=== PATIENT | male | born 1990 | race American Indian/Alaskan Native ===

== ENCOUNTER 2018-12-10 07:17 | Emergency (ER) | payer SELFPAY ==
[2018-12-10 09:03] LABS: Basophils % (Auto) 0.6 % (0.0-1.8); Eosinophils # (Auto) 0.2 K/mm3 (0.0-0.4); Hematocrit 46.3 % (35.5-45.6); Hemoglobin 15.7 gm/dl (11.8-15.2); Lymphocytes # (Auto) 1.9 K/mm3 (1.2-5.4); Lymphocytes % (Auto) 26.2 % (13.4-35.0); Mean Corpuscular HGB Conc 34 % (32-34); Mean Corpuscular Volume 90 fl (84-94); Monocytes # (Auto) 0.6 K/mm3 (0.0-0.8); Monocytes % (Auto) 8.4 % (0.0-7.3); Platelet Count 259 K/mm3 (140-440); Red Blood Count 5.15 M/mm3 (3.65-5.03); Red Cell Distribution Width 13.1 % (13.2-15.2)
[2018-12-10 09:20] LABS: BUN/Creatinine Ratio 16; Blood Urea Nitrogen 13 mg/dL (9-20); Calcium 9.2 mg/dL (8.4-10.2); Hemolysis Index 9
[2018-12-10 09:21] LABS: INR 0.97 (0.87-1.13)
[2018-12-10 09:22] LABS: Partial Thromboplastin Time 26.3 Sec. (24.2-36.6)
--- NOTE | 2018-12-10 09:27 | XRay Report ---
AP CHEST: HISTORY: chest pain AP view of the chest demonstrates a normal mediastinal and cardiac contour with clear lungs and normal bony and soft tissue structures. IMPRESSION: Unremarkable AP chest.
[2018-12-10 10:35] LABS: Amphetamine Screen,Urine PRESUMPTIVE NEGATIVE; Benzodiazepines Screen,Urine PRESUMPTIVE NEGATIVE; Cocaine Screen,Urine PRESUMPTIVE NEGATIVE; Methadone Screen,Urine PRESUMPTIVE NEGATIVE; Opiate Screen,Urine PRESUMPTIVE NEGATIVE
[2018-12-10 10:52] LABS: Cannabinoid Screen,Urine PRESUMPTIVE POSITIVE
--- NOTE | 2018-12-10 11:03 | Emergency Department Report ---
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 He arrives today complaining of intermittent chest pain of weeks' duration. This is his first evaluation. He states he has anterior sharp pain which does not radiate. It is nonpleuritic. He has other aches and pains such as myalgias in his e xtremities. He is not complaining of shortness of breath now but states he has this occasionally. Does not complain of cough. He's had no leg pain or swelling. He denies any recent travel. He denies sweating or nausea or vomiting or any other symptoms. His pain is nonexertional in nature. He states the chest pain lasts for seconds and is associated with palpable soreness. -: week(s) Location: chest Radiation: non-radiation Severity scale (0 -10): 0 Quality: sharp Consistency: intermittent, now resolved Improves with: none Worsens with: none Associated Symptoms: denies other symptoms Treatments Prior to Arrival: none - Related Data Allergies Allergy/AdvReac Type Severity Reaction Status Date / Time No Known Allergies Allergy Verified 12/10/18 07:23 ED Review of Systems ROS: Stated complaint: CHEST PAIN Other details as noted in HPI Constitutional: denies: chills, fever Eyes: denies: eye pain, eye discharge, vision change ENT: denies: ear pain, throat pain Respiratory: see HPI. denies: cough, wheezing Cardiovascular: chest pain. denies: palpitations Endocrine: no symptoms reported Gastrointestinal: denies: abdominal pain, nausea, diarrhea Genitourinary: denies: urgency, dysuria Musculoskeletal: denies: back pain, joint swelling, arthralgia Skin: denies: rash, lesions Neurological: denies: headache, weakness, paresthesias Psychiatric: denies: anxiety, depression Hematological/Lymphatic: denies: easy bleeding, easy bruising ED Past Medical Hx - Past Medical History Previous Medical History?: No - Surgical History Past Surgical History?: No - Social History Smoking Status: Never Smoker Substance Use Type: Alcohol ED Physical Exam - General Limitations: No Limitations General appearance: alert, in no apparent distress - Head Head exam: Present: atraumatic, normocephalic - Eye Eye exam: Present: normal appearance - ENT ENT exam: Present: mucous membranes moist - Neck Neck exam: Present: normal inspection. Absent: tenderness, meningismus - Respiratory Respiratory exam: Present: normal lung sounds bilaterally. Absent: respiratory distress - Cardiovascular Cardiovascular Exam: Present: regular rate, normal rhythm. Absent: systolic murmur, diastolic murmur, rubs, gallop - GI/Abdominal GI/Abdominal exam: Present: soft, normal bowel sounds. Absent: distended, t enderness, guarding, rebound, rigid - Rectal Rectal exam: Present: deferred - Extremities Exam Extremities exam: Present: normal inspection - Back Exam Back exam: Present: normal inspection - Neurological Exam Neurological exam: Present: alert, oriented X3, CN II-XII intact. Absent: motor sensory deficit - Psychiatric Psychiatric exam: Present: normal affect, normal mood - Skin Skin exam: Present: warm, dry, intact, normal color. Absent: rash ED Course Vital Signs 12/10/18 12/10/18 07:23 10:23 Temperature 98.6 F Pulse Rate 75 84 Respiratory 18 18 Rate Blood Pressure 137/78 Blood Pressure 136/79 [Left] O2 Sat by Pulse 98 96 Oximetry - Reevaluation(s) Reevaluation #1: Patient remained without complaints in the emergency department. 12/10/18 11:02 ED Medical Decision Making - Lab Data Result diagrams: 12/10/18 08:43 12/10/18 08:43 Laboratory Results - last 24 hr 12/10/18 12/10/18 12/10/18 08:43 08:43 08:43 WBC 7.2 RBC 5.15 H Hgb 15.7 H Hct 46.3 H MCV 90 MCH 31 MCHC 34 RDW 13.1 L Plt Count 259 Lymph % (Auto) 26.2 [place] % (Auto) 8.4 H Eos % (Auto) 3.0 Baso % (Auto) 0.6 Lymph # 1.9 [place] # 0.6 Eos # 0.2 Baso # 0.0 Seg Neutrophils % 61.8 Seg Neutrophils # 4.4 PT 13.5 INR 0.97 APTT 26.3 D-Dimer 151.12 Sodium 138 Potassium 4.2 Chloride 100.4 Carbon Dioxide 25 Anion Gap 17 BUN 13 Creatinine 0.8 Estimated GFR > 60 BUN/Creatinine Ratio 16 Glucose 77 Calcium 9.2 Troponin T < 0.010 Urine Opiates Screen Urine Methadone Screen Ur Barbiturates Screen Ur Phencyclidine Scrn Ur Amphetamines Screen U Benzodiazepines Scrn Urine Cocaine Screen U Marijuana (THC) Screen Drugs of Abuse Note 12/10/18 10:05 WBC RBC Hgb Hct MCV MCH MCHC RDW Plt Count Lymph % (Auto) [place] % (Auto) Eos % (Auto) Baso % (Auto) Lymph # [place] # Eos # Baso # Seg Neutrophils % Seg Neutrophils # PT INR APTT D-Dimer Sodium Potassium Chloride Carbon Dioxide Anion Gap BUN Creatinine Estimated GFR BUN/Creatinine Ratio Glucose Calcium Troponin T Urine Opiates Screen Presumptive negative Urine Methadone Screen Presumptive negative Ur Barbiturates Screen Presumptive negative Ur Phencyclidine Scrn Presumptive negative Ur Amphetamines Screen Presumptive negative U Benzodiazepines Scrn Presumptive negative Urine Cocaine Screen Presumptive negative U Marijuana (THC) Screen Presumptive positive Drugs of Abuse Note Disclamer - EKG Data -: EKG Interpreted by Ak EKG shows normal: sinus rhythm, axis, intervals, QRS complexes, ST-T waves Rate: normal - EKG Data Interpretation: no acute changes - Radiology Data Radiology results: report reviewed (chest x-ray no acute findings) Critical care attestation.: If time is entered above; I have spent that time in minutes in the direct care of this critically ill patient, excluding procedure time. ED Disposition Clinical Impression: Atypical chest pain Disposition: DC-01 TO HOME OR SELFCARE Is pt being admited?: No Does the pt Need Aspirin: No Condition: Stable Instructions: Chest Pain (ED) Additional Instructions: Return any acute change or problem. You can try [id number] medication. Further care and evaluation is recommended at this outside medical clinic. Referrals: DOREEN VALLEJO MD [Primary Care Provider] - 3-5 Days Time of Disposition: 11:04
[2018-12-10 11:17] VITALS: BP 124/84
== END 2018-12-10 11:15 | disposition home or self-care (01) ==
LOC: ED 07:17
DX: R07.89 Other chest pain (principal); M79.18 Myalgia, other site; Z79.899 Other long term (current) drug therapy
CPT/HCPCS: 36415; 71045; 80048; 80307; 84484; 85025; 85379; 85610; 85730; 93005; 93010

== ENCOUNTER 2019-05-13 16:25 | Emergency (ER) | payer OTHER ==
[2019-05-13 16:50] VITALS: BP 127/75
--- NOTE | 2019-05-13 18:08 | XRay Report ---
CHEST 2 VIEWS INDICATION / CLINICAL INFORMATION: Chest pain. COMPARISON: None available. FINDINGS: SUPPORT DEVICES: None. HEART / MEDIASTINUM: The heart size and pulmonary vasculature are normal. The aorta is normal in [place]. LUNGS / PLEURA: No significant pulmonary or pleural abnormality. No pneumothorax. ADDITIONAL FINDINGS: No significant additional findings. IMPRESSION: No acute findings. Signer Name: Cayden Walters MD Signed: 05/13/2019 6:04 PM Workstation Name: [id number]
[2019-05-13] MEDS ORDERED: TORADOL PO ONE (18:36)
--- NOTE | 2019-05-13 18:38 | Emergency Department Report ---
ED Chest Pain HPI - General Chief Complaint: Extremity Injury, Lower Stated Complaint: CHEST/LEG PAIN Time Seen by Provider: 05/13/19 17:28 Source: patient Mode of arrival: Ambulatory Limitations: No Limitations - History of Present Illness Initial Comments: Patient is a 28-year-old male who presents emergency room for complaints of substernal chest pain that began a week ago. Patient was evaluated in the emergency department in November 2018 for the same symptoms and had a normal workup at that time. He states his pain is worse with movement. 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 He denies any nausea, vomiting, shortness of breath, LE edema, radiation of the pain. He denies any personal cardiac history or family cardiac history. Denies any recent car or plane ride, recent surgery or recent immobilization. He is a nonsmoker, nondrinker, denies drug use. He denies any medical problems or any allergies to medications. Severity scale (0 -10): 8 - Related Data Allergies Allergy/AdvReac Type Severity Reaction Status Date / Time No Known Allergies Allergy Verified 05/13/19 16:28 Heart Score - HEART Score History: Slightly suspicious EKG: Normal Age: < 45 Risk factors: No known risk factors Troponin: < normal limit (not tested) HEART Score: 0 ED Review of Systems ROS: Stated complaint: CHEST/LEG PAIN Other details as noted in HPI Comment: All other systems reviewed and negative ED Past Medical Hx - Past Medical History Previous Medical History?: No - Surgical History Past Surgical History?: No - Social History Smoking Status: Never Smoker Substance Use Type: None ED Physical Exam - General Limitations: No Limitations General appearance: alert, in no apparent distress - Head Head exam: Present: atraumatic, normocephalic - Eye Eye exam: Present: normal appearance, PERRL - ENT ENT exam: Present: mucous membranes moist - Respiratory Respiratory exam: Present: normal lung sounds bilaterally, chest wall tenderness (reproducible anterior chest wall discomfort to palpation and with hugging his bilateral arms inward). Absent: respiratory distress, wheezes, rales, rhonchi, stridor, accessory muscle use, decreased breath sounds, prolonged expiratory - Cardiovascular Cardiovascular Exam: Present: regular rate, normal rhythm, normal heart sounds. Absent: systolic murmur, diastolic murmur, rubs, gallop - Extremities Exam Extremities exam: Absent: pedal edema - Neurological Exam Neurological exam: Present: alert, oriented X3 - Psychiatric Psychiatric exam: Present: normal affect, normal mood - Skin Skin exam: Present: warm, dry, intact ED Course Vital Signs 05/13/19 16:47 Temperature 98.2 F Pulse Rate 68 Respiratory 16 Rate Blood Pressure 127/75 [Left] O2 Sat by Pulse 99 Oximetry ISAI score - Isai Score Age > 65: (0) No Aspirin use within the Past 7 Days: (0) No 3 or more CAD Risk Factors: (0) No 2 or more Angina events in past 24 hrs: (0) No Known CAD with more than 50% Stenosis: (0) No Elevated Cardiac Markers: (0) No (not tested) ST Deviation Greater than 0.5mm: (0) No ISAI Score: 0 ED Medical Decision Making - EKG Data EKG shows normal: sinus rhythm, axis, QRS complexes Rate: bradycardia (HR at 56) - EKG Data 05/13/19 18:38 prolonged MI interval at 230 normal early repolarization pattern - Radiology Data Radiology results: report reviewed cc: CHRIS VASQUEZ Fluoro Time In Minutes: CHEST 2 VIEWS INDICATION / CLINICAL INFORMATION: Chest pain. COMPARISON: None available. FINDINGS: SUPPORT DEVICES: None. HEART / MEDIASTINUM: The heart size and pulmonary vasculature are normal. The aorta is normal in caliber. LUNGS / PLEURA: No significant pulmonary or pleural abnormality. No pneumothorax. ADDITIONAL FINDINGS: No significant additional findings. IMPRESSION: No acute findings. Signer Name: Cayden Walters MD Signed: 05/13/2019 6:04 PM Workstation Name: [id number] Transcribed By: RT Dictated By: Cayden Walters MD Electronically Authenticated By: Cayden Walters MD Signed Date/Time: 05/13/19 1804 - Medical Decision Making Patient is a 28-year-old male who presents emergency room for complaints of substernal chest pain that began a week ago. Patient was evaluated in the emergency department in November 2018 for the same symptoms and had a normal workup at that time. He states his pain is worse with movement. 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 He denies any nausea, vomiting, shortness of breath, LE edema, radiation of the pain. He denies any personal cardiac history or family cardiac history. Denies any recent car or plane ride, recent surgery or recent immobilization. He is a nonsmoker, nondrinker, denies drug use. He denies any medical problems or any allergies to medications. vitals are normal. on exam: reproducible anterior chest wall discomfort to palpation and with hugging his bilateral arms inward. CXR with no acute process. EKG shows prolonged MI interval at 230 and normal early repol pattern. pt given toradol for his discomfort while in the ED and his pain completely resolved. he has no CP at all currently. on his visit in 12/14 he had a normal D-dimer and normal troponin. he is PERC criteria negative. he does not meet criteria for ISAI or heart score. due to it being pts second visit in the emergency department for chest discomfort pt was referred to cardiology on an outpatient basis for further evaluation of his chest discomfort. discussed all results with pt. advised pt to please follow up with a manager banquet in the next 2-3 days. please follow up with a primary care doctor in the next 2-3 days. return to the emergency room for any new or worsening symptoms. - Differential Diagnosis costochrondritis, GERD, ACS, PE, PTX, arrhythmia, valvular dysfunction Critical care attestation.: If time is entered above; I have spent that time in minutes in the direct care of this critically ill patient, excluding procedure time. ED Disposition Clinical Impression: First degree heart block Chest pain Qualifiers: Chest pain type: unspecified Qualified Code(s): R07.9 - Chest pain, unspecified Disposition: -01 TO HOME OR SELFCARE Is pt being admited?: No Does the pt Need Aspirin: No Condition: Stable Instructions: Chest Pain (ED) Additional Instructions: please follow up with a manager banquet in the next 2-3 days. please follow up with a primary care doctor in the next 2-3 days. return to the emergency room for any new or worsening symptoms. Referrals: DOREEN VALLEJO MD [Primary Care Provider] - 2-3 Days CHEN RENTERIA MD [Staff Physician] - 2-3 Days Time of Disposition: 18:40 Print Language: PARAGUAYAN
== END 2019-05-13 19:19 | disposition home or self-care (01) ==
LOC: ED 16:25
DX: I44.0 Atrioventricular block, first degree (principal)
CPT/HCPCS: 71046; 93005; 93010

== ENCOUNTER 2019-05-16 08:02 | Emergency (ER) | payer SELFPAY ==
[2019-05-16 08:14] VITALS: BP 129/75
--- NOTE | 2019-05-16 09:16 | XRay Report ---
CHEST 1 VIEW 05/16/2019 8:43 AM INDICATION / CLINICAL INFORMATION: Chest Pain. COMPARISON: 05/13/2019. FINDINGS: SUPPORT DEVICES: None. HEART / MEDIASTINUM: No significant abnormality. LUNGS / PLEURA: No significant pulmonary or pleural abnormality. No pneumothorax. ADDITIONAL FINDINGS: No significant additional findings. IMPRESSION: 1. No acute findings. Signer Name: Michael Siegel MD Signed: 05/16/2019 9:12 AM Workstation Name: [id number]
--- NOTE | 2019-05-16 12:38 | Emergency Department Report ---
ED General Adult HPI - General Chief complaint: Chest Pain Stated complaint: CHEST/LFT ARM PAIN Time Seen by Provider: 05/16/19 12:14 Source: patient Mode of arrival: Ambulatory Limitations: No Limitations - History of Present Illness Initial comments: Patient presents to the emergency department with a chief complaint of diffuse chest pain for the last week. Patient states the pain sometimes radiates into her shoulder. Patient initially thought the pain was secondary to pushups. Patient states he took a recent car trip to [place] and back 2 weeks ago but denies shortness of breath -: Sudden Location: chest Radiation: extremity Severity scale (0 -10): 3 Quality: sharp Improves with: none Worsens with: none Associated Symptoms: denies other symptoms Treatments Prior to Arrival: none - Related Data Allergies Allergy/AdvReac Type Severity Reaction Status Date / Time No Known Allergies Allergy Verified 05/13/19 16:28 ED Review of Systems ROS: Stated complaint: CHEST/LFT ARM PAIN Other details as noted in HPI Constitutional: denies: chills, fever Eyes: denies: eye pain, eye discharge, vision change ENT: denies: ear pain, throat pain Respiratory: denies: cough, shortness of breath, wheezing Cardiovascular: chest pain. denies: palpitations Endocrine: no symptoms reported Gastrointestinal: denies: abdominal pain, nausea, diarrhea Genitourinary: denies: urgency, dysuria Musculoskeletal: denies: back pain, joint swelling, arthralgia Skin: denies: rash, lesions Neurological: denies: headache, weakness, paresthesias Psychiatric: denies: anxiety, depression Hematological/Lymphatic: denies: easy bleeding, easy bruising ED Past Medical Hx - Past Medical History Previous Medical History?: Yes Additional medical history: first degree heart block - Surgical History Past Surgical History?: No - Social History Smoking Status: Never Smoker Substance Use Type: None ED Physical Exam - General Limitations: No Limitations General appearance: alert, in no apparent distress - Head Head exam: Present: atraumatic, normocephalic - Eye Eye exam: Present: normal appearance, PERRL, EOMI - ENT ENT exam: Present: mucous membranes moist - Neck Neck exam: Present: normal inspection - Respiratory Respiratory exam: Present: normal lung sounds bilaterally. Absent: respiratory distress - Cardiovascular Cardiovascular Exam: Present: regular rate, normal rhythm. Absent: systolic murmur, diastolic murmur, rubs, gallop - GI/Abdominal GI/Abdominal exam: Present: soft, normal bowel sounds - Rectal Rectal exam: Present: deferred - Extremities Exam Extremities exam: Present: normal inspection - Back Exam Back exam: Present: normal inspection - Neurological Exam Neurological exam: Present: alert, oriented X3, CN II-XII intact. Absent: motor sensory deficit - Psychiatric Psychiatric exam: Present: normal affect, normal mood - Skin Skin exam: Present: warm, dry, intact, normal color. Absent: rash ED Course Vital Signs 05/16/19 08:08 Temperature 98.3 F Pulse Rate 68 Respiratory 18 Rate Blood Pressure 129/75 O2 Sat by Pulse 97 Oximetry ED Medical Decision Making - Lab Data Result diagrams: 05/16/19 13:27 05/16/19 13:27 Lab Results 05/16/19 05/16/19 05/16/19 Range/Units 13:27 13:27 13:27 WBC 5.9 (4.5-11.0) K/mm3 RBC 5.07 H (3.65-5.03) M/mm3 Hgb 16.2 H (11.8-15.2) gm/dl Hct 46.3 H (35.5-45.6) % MCV 91 (84-94) fl MCH 32 (28-32) pg MCHC 35 H (32-34) % RDW 12.9 L (13.2-15.2) % Plt Count 291 (140-440) K/mm3 Lymph % (Auto) 31.3 (13.4-35.0) % [place] % (Auto) 7.0 (0.0-7.3) % Eos % (Auto) 1.5 (0.0-4.3) % Baso % (Auto) 0.6 (0.0-1.8) % Lymph # 1.8 (1.2-5.4) K/mm3 [place] # 0.4 (0.0-0.8) K/mm3 Eos # 0.1 (0.0-0.4) K/mm3 Baso # 0.0 (0.0-0.1) K/mm3 Seg Neutrophils % 59.6 (40.0-70.0) % Seg Neutrophils # 3.5 (1.8-7.7) K/mm3 D-Dimer < 135.00 (0-234) ng/mlDDU Sodium 136 L (137-145) mmol/L Potassium 3.7 (3.6-5.0) mmol/L Chloride 98.3 (98-107) mmol/L Carbon Dioxide 25 (22-30) mmol/L Anion Gap 16 mmol/L BUN 10 (9-20) mg/dL Creatinine 0.8 (0.8-1.5) mg/dL Estimated GFR > 60 ml/min BUN/Creatinine Ratio 13 % Glucose 81 (75-100) mg/dL Calcium 10.0 (8.4-10.2) mg/dL Troponin T < 0.010 (0.00-0.029) ng/mL - EKG Data -: EKG Interpreted by Ms EKG shows normal: sinus rhythm Rate: normal - EKG Data Interpretation: other (early re-debora) - Radiology Data Radiology results: report reviewed - Medical Decision Making Results discussed with patient Critical care attestation.: If time is entered above; I have spent that time in minutes in the direct care of this critically ill patient, excluding procedure time. ED Disposition Clinical Impression: Nonspecific chest pain Disposition: DC-01 TO HOME OR SELFCARE Is pt being admited?: No Does the pt Need Aspirin: No Condition: Stable Instructions: Noncardiac Chest Pain (ED) Additional Instructions: return if worse Time of Disposition: 14:43
[2019-05-16 14:17] LABS: Basophils % (Auto) 0.6 % (0.0-1.8); Eosinophils # (Auto) 0.1 K/mm3 (0.0-0.4); Eosinophils % (Auto) 1.5 % (0.0-4.3); Hematocrit 46.3 % (35.5-45.6); Hemoglobin 16.2 gm/dl (11.8-15.2); Lymphocytes # (Auto) 1.8 K/mm3 (1.2-5.4); Lymphocytes % (Auto) 31.3 % (13.4-35.0); Mean Corpuscular HGB Conc 35 % (32-34); Mean Corpuscular Volume 91 fl (84-94); Monocytes # (Auto) 0.4 K/mm3 (0.0-0.8); Platelet Count 291 K/mm3 (140-440); Red Blood Count 5.07 M/mm3 (3.65-5.03); Red Cell Distribution Width 12.9 % (13.2-15.2)
[2019-05-16 14:39] LABS: BUN/Creatinine Ratio 13; Blood Urea Nitrogen 10 mg/dL (9-20); Hemolysis Index 13
== END 2019-05-16 14:55 | disposition home or self-care (01) ==
LOC: ED 08:02
DX: R07.9 Chest pain, unspecified (principal)
CPT/HCPCS: 36415; 71045; 80048; 84484; 85025; 85379; 93005; 93010

== ENCOUNTER 2019-05-21 22:44 | Emergency (ER) | payer SELFPAY ==
[2019-05-21 23:02] VITALS: BP 131/80
--- NOTE | 2019-05-21 23:48 | XRay Report ---
LEFT SHOULDER 3 VIEWS INDICATION / CLINICAL INFORMATION: left shoulder pain. COMPARISON: None available. FINDINGS: No significant skeletal abnormality. Signer Name: Cameron Arnold MD FACBarby Signed: 05/21/2019 11:44 PM Workstation Name: [id number]
[2019-05-22] MEDS ORDERED: ULTRAM PO ONE (00:02)
--- NOTE | 2019-05-22 00:42 | Emergency Department Report ---
Upper Extremity - HPI Chief Complaint: Back Pain/Injury Stated Complaint: SHOULDER/BACK PAIN Time Seen by Provider: 05/22/19 00:00 Upper Extremity: Left Shoulder (left posterior lateral shoulder muscle pain ) Occurred When: 2 Days Mechanism: Unsure Symptoms: Yes Pain with Movement, No Deformity, No Limited Range of Movement, No Numbness, No Weakness, No Swelling, No Bruising/Ecchymosis, No Laceration or Abrasion ED Review of Systems ROS: Stated complaint: SHOULDER/BACK PAIN Other details as noted in HPI Constitutional: denies: chills, fever Eyes: denies: eye pain, eye discharge, vision change ENT: denies: ear pain, throat pain Respiratory: denies: cough, shortness of breath, wheezing Cardiovascular: denies: chest pain, palpitations Endocrine: no symptoms reported Gastrointestinal: denies: abdominal pain, nausea, diarrhea Genitourinary: denies: urgency, dysuria Musculoskeletal: other (left shoulder pain). denies: back pain, joint swelling, arthralgia Skin: denies: rash, lesions Neurological: denies: headache, weakness, paresthesias Psychiatric: denies: anxiety, depression Hematological/Lymphatic: denies: easy bleeding, easy bruising ED Past Medical Hx - Past Medical History Previous Medical History?: No Additional medical history: first degree heart block - Surgical History Past Surgical History?: No - Social History Smoking Status: Never Smoker Substance Use Type: None - Medications Home Medications: Home Medications Medication Instructions Recorded Confirmed Last Taken Type Ibuprofen [Motrin] 800 mg PO Q8HR PRN #30 tablet 05/16/19 Unknown Rx Cyclobenzaprine [Flexeril] 10 mg PO TID PRN #30 tablet 05/22/19 Unknown Rx Naproxen [Naprosyn TAB] 500 mg PO BID PRN #30 tablet 05/22/19 Unknown Rx Upper Extremity Exam - Exam General: Vital signs noted. No distress. Alert and acting appropriately. Head and Torso: No HEENT Abnormality, No Neck Tenderness, No Chest/Lungs Abnormality, No Abdominal Tenderness, No Back Tenderness Shoulder Exam: Yes Shoulder Tenderness, Yes Normal Range of Motion in Shoulder, No Clavicle Tenderness, No Shoulder Deformity, No AC Joint Tenderness Arm Exam: No Arm/Humerus Tenderness, No Arm Deformity Elbow: No Elbow Tenderness, No Normal Range of Motion in Elbow, No Elbow Deformity Forearm: No Forearm Tenderness, No Forearm Deformity, No Pain with Pronation, No Pain with Supination Wrist: Yes Normal ROM in Wrist, No Wrist Tenderness, No Wrist Deformity, No Snuffbox Tenderness, No Pain with Axial Thumb Compression Hand: Yes Normal ROM in Digit(s), No Hand Tenderness, No Hand Deformity, No Digit Tenderness, No Digit(s) Deformity, No Tendon Dysfunction CMS Exam: Yes Normal Distal Pulses, Yes Normal Capillary Refill, Yes Normal Distal Sensation, No Broken Skin ED Course Vital Signs 05/21/19 22:59 Temperature 98.1 F Pulse Rate 61 Respiratory 18 Rate Blood Pressure 131/80 O2 Sat by Pulse 99 Oximetry ED Medical Decision Making - Radiology Data Radiology results: report reviewed, image reviewed Ordering Physician: ED MD BRY Date of Service: 05/21/19 Procedure(s): XR shoulder 2+V LT Accession Number(s): [id number] cc: ED MD BRY Fluoro Time In Minutes: LEFT SHOULDER 3 VIEWS INDICATION / CLINICAL INFORMATION: left shoulder pain. COMPARISON: None available. FINDINGS: No significant skeletal abnormality. Signer Name: Cameron Arnold MD FACR Signed: 05/21/2019 11:44 PM Workstation Name: [id number] Transcribed By: MS Dictated By: Cameron Arnold MD Electronically Authenticated By: Cameron Arnold MD Signed Date/Time: 05/21/192343 DD/ 42 TD/TT: - Medical Decision Making pain improved xray normal plan nsaids muscle relaxant shoulder exercises follow up with pcp in 2-3 days pt verbalized agreement and understanding of same. Critical care attestation.: If time is entered above; I have spent that time in minutes in the direct care of this critically ill patient, excluding procedure time. ED Disposition Clinical Impression: Muscle strain of left shoulder Qualifiers: Encounter type: initial encounter Qualified Code(s): S46.912A - Strain of unspecified muscle, fascia and tendon at shoulder and upper arm level, left arm, initial encounter Disposition: TO HOME OR SELFCARE Is pt being admited?: No Does the pt Need Aspirin: No Condition: Stable Instructions: Shoulder Sprain (ED) Prescriptions: Cyclobenzaprine [Flexeril] 10 mg PO TID PRN #30 tablet PRN Reason: Muscle Spasm Naproxen [Naprosyn TAB] 500 mg PO BID PRN #30 tablet PRN Reason: pain Forms: Work/School Release Form(ED) Time of Disposition: 00:43
== END 2019-05-22 01:01 | disposition home or self-care (01) ==
LOC: ED 22:44
DX: S46.912A Strain of unspecified muscle, fascia and tendon at shoulder and upper arm level, left arm, initial encounter (principal); X58.XXXA Exposure to other specified factors, initial encounter; Y93.89 Activity, other specified; Y92.89 Other specified places as the place of occurrence of the external cause; Y99.8 Other external cause status

== ENCOUNTER → 2019-07-11 00:33 | Emergency (ER) | payer SELFPAY | END | disposition left against medical advice (07) | LOC: ED 00:33 | DX: M54.2 Cervicalgia (principal); Z53.21 Procedure and treatment not carried out due to patient leaving prior to being seen by health care provider ==

== ENCOUNTER 2019-07-11 18:25 | Emergency (ER) | payer SELFPAY ==
[2019-07-11 18:56] VITALS: BP 130/74
--- NOTE | 2019-07-11 18:56 | Event Note ---
ED Screening Note ED Screening Note: pt presents for left sided neck pain that began 6 days ago no fall or injury denies having in the past has taken over the counter pain relief denies any heavy lifting This initial assessment/diagnostic orders/clinical plan/treatment(s) is/are subject to change based on patients health status, clinical progression and re- assessment by fellow clinical providers in the ED. Further treatment and workup at subsequent clinical providers discretion. Patient/guardian urged not to elope from the ED as their condition may be serious if not clinically assessed and managed. Initial orders include: XR of the c-spine
--- NOTE | 2019-07-11 19:23 | XRay Report ---
CLINICAL DATA: neck pain TECHNICAL DATA: AP, lateral, and odontoid views of the cervical spine were obtained. FINDINGS: The vertebral body heights, disc spaces, and alignment are well within normal limits. There is no wendy dence of fracture. No prevertebral soft tissue swelling is evident. IMPRESSION: Normal alignment without evidence of fracture. Signer Name: Ben Camarillo MD Signed: 07/11/2019 7:18 PM Workstation Name: [id number]
[2019-07-11] MEDS ORDERED: IBUPROFEN PO ONE (20:34)
--- NOTE | 2019-07-11 20:47 | Emergency Department Report ---
ED General Adult HPI - General Chief complaint: Sore Throat Stated complaint: LFT SIDE NECK/THROAT PAIN Time Seen by Provider: 07/11/19 18:52 Source: patient Mode of arrival: Ambulatory Limitations: No Limitations - History of Present Illness Initial comments: 28-year-old male presents to ED complaining of left-sided neck pain past week. Patient denies any injury, trauma or falls to the neck. Patient states that he woke up couple days ago and having aching pain to the left side of his neck. Patient denies difficulty swallowing or throat pain. He denies fevers or chills/nausea vomiting. - Related Data Previous Rx's Medication Instructions Recorded Last Taken Type Naproxen [Naprosyn TAB] 500 mg PO BID PRN #30 tablet 05/22/19 Unknown Rx Cyclobenzaprine [Flexeril 10 MG 10 mg PO QHS PRN #15 tablet 07/11/19 Unknown Rx TAB] Ibuprofen [Motrin 800 MG tab] 800 mg PO Q8HR PRN #30 tablet 07/11/19 Unknown Rx Allergies Allergy/AdvReac Type Severity Reaction Status Date / Time No Known Allergies Allergy Verified 05/13/19 16:28 ED Review of Systems ROS: Stated complaint: LFT SIDE NECK/THROAT PAIN Other details as noted in HPI Comment: All other systems reviewed and negative ED Past Medical Hx - Past Medical History Previous Medical History?: Yes Additional medical history: first degree heart block - Surgical History Past Surgical History?: No - Social History Smoking Status: Never Smoker Substance Use Type: Marijuana - Medications Home Medications: Home Medications Medication Instructions Recorded Confirmed Last Taken Type Naproxen [Naprosyn TAB] 500 mg PO BID PRN #30 tablet 05/22/19 Unknown Rx Cyclobenzaprine [Flexeril 10 MG 10 mg PO QHS PRN #15 tablet 07/11/19 Unknown Rx TAB] Ibuprofen [Motrin 800 MG tab] 800 mg PO Q8HR PRN #30 tablet 07/11/19 Unknown Rx ED Physical Exam - General Limitations: No Limitations General appearance: alert, in no apparent distress - Head Head exam: Present: atraumatic, normocephalic - Eye Eye exam: Present: normal appearance, PERRL Pupils: Present: normal accommodation - ENT ENT exam: Present: mucous membranes moist - Neck Neck exam: Present: normal inspection, tenderness (the left sternocleidomastoid muscle), full ROM. Absent: meningismus, lymphadenopathy - Respiratory Respiratory exam: Present: normal lung sounds bilaterally. Absent: respiratory distress - Cardiovascular Cardiovascular Exam: Present: regular rate, normal rhythm. Absent: systolic murmur, diastolic murmur, rubs, gallop - GI/Abdominal GI/Abdominal exam: Present: soft, normal bowel sounds - Rectal Rectal exam: Present: deferred - Extremities Exam Extremities exam: Present: normal inspection - Back Exam Back exam: Present: normal inspection - Neurological Exam Neurological exam: Present: alert, oriented X3 - Psychiatric Psychiatric exam: Present: normal affect, normal mood - Skin Skin exam: Present: warm, dry, intact, normal color. Absent: rash ED Course Vital Signs 07/11/19 18:53 Temperature 98.1 F Pulse Rate 70 Respiratory 18 Rate Blood Pressure 130/74 O2 Sat by Pulse 100 Oximetry ED Medical Decision Making - Radiology Data Radiology results: report reviewed, image reviewed neck pain TECHNICAL DATA: AP, lateral, and odontoid views of the cervical spine were obtained. FINDINGS: The vertebral body heights, disc spaces, and alignment are well within normal limits. There is no evidence of fracture. No prevertebral soft tissue swelling is evident. IMPRESSION: Normal alignment without evidence of fracture. Signer Name: Ben Camarillo MD Signed: 07/11/2019 7:18 PM Workstation Name: [id number] Transcribed By: BRUCE Dictated By: Ben Camarillo MD Electronically Authenticated By: Ben Camarillo MD Signed Date/Time: 07/11/191917 - Medical Decision Making 28-year-old male presents with cervical muscle strain. Patient received Motrin in the ED. Vital signs are normal patient is in no acute distress. X-ray shows no acute findings. Discussed with the patient of follow-up with primary care physician. Discussed application of heat therapy 3 times a day. Patient is in no respiratory distress, there was no spinal tenderness on examination and states he understands instructions. Critical care attestation.: If time is entered above; I have spent that time in minutes in the direct care of this critically ill patient, excluding procedure time. ED Disposition Clinical Impression: Cervical muscle strain Disposition: DC-01 TO HOME OR SELFCARE Is pt being admited?: No Does the pt Need Aspirin: No Condition: Stable Instructions: Muscle Strain (ED), Musculoskeletal Pain (ED) Additional Instructions: Make sure to follow up with the primary care physician as discussed. Take all your medications as you've been prescribed. If you have any worsening symptoms or develop new symptoms please return to ED immediately. Prescriptions: Cyclobenzaprine [Flexeril 10 MG TAB] 10 mg PO QHS PRN #15 tablet PRN Reason: Muscle Spasm Ibuprofen [Motrin 800 MG tab] 800 mg PO Q8HR PRN #30 tablet PRN Reason: pain Referrals: DOREEN VALLEJO MD [Primary Care Provider] - 3-5 Days [facility] [Outside] - 3-5 Days [facility] [Outside] - 3-5 Days Forms: Work/School Release Form(ED) Time of Disposition: 21:05
== END 2019-07-11 21:30 | disposition left against medical advice (07) ==
LOC: ED 18:25
DX: S16.1XXA Strain of muscle, fascia and tendon at neck level, initial encounter (principal); F12.10 Cannabis abuse, uncomplicated; Z98.890 Other specified postprocedural states; X58.XXXA Exposure to other specified factors, initial encounter; Y93.89 Activity, other specified; Y92.89 Other specified places as the place of occurrence of the external cause; Y99.8 Other external cause status
CPT/HCPCS: 72040

== ENCOUNTER 2019-09-10 21:57 | Emergency (ER) | payer SELFPAY ==
--- NOTE | 2019-09-10 22:08 | Event Note ---
ED Screening Note Date of service: 09/10/19 Time: 22:04 ED Screening Note: This is a 28 y.o. M. that presents to the ER with dizziness, nausea, and lightheadedness for 1 week. Current marijuana smoker. - fever, chills, vomiting, diarrhea This initial assessment/diagnostic orders/clinical plan/treatment(s) is/are subject to change based on patients health status, clinical progression and re- assessment by fellow clinical providers in the ED. Further treatment and workup at subsequent clinical providers discretion. Patient/guardian urged not to elope from the ED as their condition may be serious if not clinically assessed and managed. Initial orders include: Labs
[2019-09-10 23:02] LABS: Basophils # (Auto) 0.1 K/mm3 (0.0-0.1); Basophils % (Auto) 1.1 % (0.0-1.8); Eosinophils # (Auto) 0.2 K/mm3 (0.0-0.4); Eosinophils % (Auto) 2.4 % (0.0-4.3); Hematocrit 42.5 % (35.5-45.6); Hemoglobin 14.4 gm/dl (11.8-15.2); Lymphocytes # (Auto) 3.5 K/mm3 (1.2-5.4); Lymphocytes % (Auto) 45.8 % (13.4-35.0); Mean Corpuscular HGB Conc 34 % (32-34); Mean Corpuscular Volume 92 fl (84-94); Monocytes # (Auto) 0.8 K/mm3 (0.0-0.8); Platelet Count 251 K/mm3 (140-440); Red Blood Count 4.63 M/mm3 (3.65-5.03); Red Cell Distribution Width 13.4 % (13.2-15.2)
[2019-09-10 23:25] LABS: Alanine Aminotransferase 17 units/L (7-56); Albumin 4.1 g/dL (3.9-5); BUN/Creatinine Ratio 13; Blood Urea Nitrogen 12 mg/dL (9-20); Calcium 9.4 mg/dL (8.4-10.2); Hemolysis Index 9
--- NOTE | 2019-09-10 23:54 | Emergency Department Report ---
ED Dizziness HPI - General Chief Complaint: Dizziness Stated Complaint: DIZZINESS, LIGHT HEADED Time Seen by Provider: 09/10/19 22:04 Source: patient Mode of arrival: Ambulatory Limitations: No Limitations - History of Present Illness Initial Comments: 28-year-old male presents to the hospital complaining of lightheadedness 1 week. Symptoms worse with standing. He states he has some mild nausea without vomiting. He denies diarrhea, melena, hematochezia, chest pain, shortness breath, palpitations, headache, blurred vision, focal weakness, or focal numbness. He also denies spinning/vertiginous sensation. He does have a pmd. Patient denies drug use. - Related Data Previous Rx's Medication Instructions Recorded Last Taken Type Naproxen [Naprosyn TAB] 500 mg PO BID PRN #30 tablet 05/22/19 Unknown Rx Cyclobenzaprine [Flexeril 10 MG 10 mg PO QHS PRN #15 tablet 07/11/19 Unknown Rx TAB] Ibuprofen [Motrin 800 MG tab] 800 mg PO Q8HR PRN #30 tablet 07/11/19 Unknown Rx Allergies Allergy/AdvReac Type Severity Reaction Status Date / Time No Known Allergies Allergy Verified 09/10/19 21:58 ED Review of Systems ROS: Stated complaint: DIZZINESS, LIGHT HEADED Other details as noted in HPI Comment: All other systems reviewed and negative ED Past Medical Hx - Past Medical History Previous Medical History?: Yes Additional medical history: first degree heart block - Surgical History Past Surgical History?: No - Social History Smoking Status: Never Smoker Substance Use Type: Marijuana - Medications Home Medications: Home Medications Medication Instructions Recorded Confirmed Last Taken Type Naproxen [Naprosyn TAB] 500 mg PO BID PRN #30 tablet 05/22/19 Unknown Rx Cyclobenzaprine [Flexeril 10 MG 10 mg PO QHS PRN #15 tablet 07/11/19 Unknown Rx TAB] Ibuprofen [Motrin 800 MG tab] 800 mg PO Q8HR PRN #30 tablet 07/11/19 Unknown Rx ED Physical Exam - General Limitations: No Limitations - Other Other exam information: General: No acute distress Head: Atraumatic Eyes: normal appearance, fatiguing bilateral lateral nystagmus without reproducing dizziness symptoms ENT: Moist mucous membranes Neck: Normal appearance, no midline tenderness Chest: Clear to auscultation bilaterally CV: Regular rate and rhythm Abdomen: Soft, normal bowel sounds, nontender, nondistended, no rebound or guarding Back: Normal inspection Extremity: Normal inspection infection, full range of motion Neuro: Alert O x 3, no facial asymmetry, speech clear, no gross motor sensory deficit, finger functionintact Psych: Appropriate behavior Skin: No rash ED Course Vital Signs 09/10/19 09/10/19 22:01 23:54 Temperature 97.7 F Pulse Rate 65 Pulse Rate [ 65 Lying] Pulse Rate [ 70 Sitting] Pulse Rate [ 71 Standing] Respiratory 18 Rate Blood Pressure 140/92 Blood Pressure 132/59 [Lying] Blood Pressure 121/75 [Sitting] Blood Pressure 127/78 [Standing] O2 Sat by Pulse 97 Oximetry ED Medical Decision Making - Lab Data Result diagrams: 09/10/19 22:44 09/10/19 22:44 Lab Results 09/10/19 09/10/19 Range/Units 22:44 22:44 WBC 7.6 (4.5-11.0) K/mm3 RBC 4.63 (3.65-5.03) M/mm3 Hgb 14.4 (11.8-15.2) gm/dl Hct 42.5 (35.5-45.6) % MCV 92 (84-94) fl MCH 31 (28-32) pg MCHC 34 (32-34) % RDW 13.4 (13.2-15.2) % Plt Count 251 (140-440) K/mm3 Lymph % (Auto) 45.8 H (13.4-35.0) % [place] % (Auto) 10.0 H (0.0-7.3) % Eos % (Auto) 2.4 (0.0-4.3) % Baso % (Auto) 1.1 (0.0-1.8) % Lymph # 3.5 (1.2-5.4) K/mm3 [place] # 0.8 (0.0-0.8) K/mm3 Eos # 0.2 (0.0-0.4) K/mm3 Baso # 0.1 (0.0-0.1) K/mm3 Seg Neutrophils % 40.7 (40.0-70.0) % Seg Neutrophils # 3.1 (1.8-7.7) K/mm3 Sodium 140 (137-145) mmol/L Potassium 4.0 (3.6-5.0) mmol/L Chloride 102.2 (98-107) mmol/L Carbon Dioxide 27 (22-30) mmol/L Anion Gap 15 mmol/L BUN 12 (9-20) mg/dL Creatinine 0.9 (0.8-1.5) mg/dL Estimated GFR > 60 ml/min BUN/Creatinine Ratio 13 % Glucose 99 (75-100) mg/dL Calcium 9.4 (8.4-10.2) mg/dL Total Bilirubin 0.60 (0.1-1.2) mg/dL AST 21 (5-40) units/L ALT 17 (7-56) units/L Alkaline Phosphatase 49 (35-129) units/L Total Protein 7.4 (6.3-8.2) g/dL Albumin 4.1 (3.9-5) g/dL Albumin/Globulin Ratio 1.2 % - EKG Data -: EKG Interpreted by Mi EKG shows normal: sinus rhythm, ST-T waves (no stemi, early repol) Rate: bradycardia (57) - Medical Decision Making ED workup unremarkable for acute abnormality. labs, ekg, orthostatics and exam unremarkable. Patient continues to deny vertigo symptoms. Outpatient follow- up with PMD advised - Differential Diagnosis anemia, volume depletion, arrhythmia vertigo Critical Care Time: No Critical care attestation.: If time is entered above; I have spent that time in minutes in the direct care of this critically ill patient, excluding procedure time. ED Disposition Clinical Impression: Lightheaded Disposition: DC-01 TO HOME OR SELFCARE Is pt being admited?: No Does the pt Need Aspirin: No Condition: Stable Instructions: Lightheadedness (ED) Additional Instructions: Follow-up with your doctor or doctor/clinic provided. Return if symptoms worsen as indicated by your discharge instructions. Referrals: your, primary care doctor [Other] - 3-5 Days Time of Disposition: 00:09
[2019-09-10 23:56] VITALS: BP 132/59
== END 2019-09-11 00:15 | disposition home or self-care (01) ==
LOC: ED 21:57
DX: R42 Dizziness and giddiness (principal); R11.0 Nausea; F12.10 Cannabis abuse, uncomplicated
CPT/HCPCS: 36415; 80053; 85025; 93005; 93010

== ENCOUNTER 2019-11-21 20:43 | Emergency (ER) | payer SELFPAY ==
[2019-11-21 20:54] VITALS: BP 125/86
--- NOTE | 2019-11-21 22:31 | XRay Report ---
CHEST 2 VIEWS INDICATION / CLINICAL INFORMATION: cough. COMPARISON: 05/16/2019 FINDINGS: SUPPORT DEVICES: None. HEART / MEDIASTINUM: No significant abnormality. LUNGS / PLEURA: No significant pulmonary or pleural abnormality. No pneumothorax. ADDITIONAL FINDINGS: No significant additional findings. IMPRESSION: 1. No acute findings. No interval change. Signer Name: Altagracia Sharma MD Signed: 11/21/2019 10:26 PM Workstation Name: [id number]
== END 2019-11-22 00:30 | disposition home or self-care (01) ==
LOC: ED 20:43
DX: R05 Cough (principal); R07.89 Other chest pain; Z53.21 Procedure and treatment not carried out due to patient leaving prior to being seen by health care provider
CPT/HCPCS: 71046

== ENCOUNTER 2020-02-06 22:57 | Emergency (ER) | payer SELFPAY ==
[2020-02-06] MEDS ORDERED: IBUPROFEN 800 MG TAB PO ONE (23:18)
--- NOTE | 2020-02-06 23:52 | Emergency Department Report ---
ED Abdominal Pain HPI - General Chief Complaint: Urogenital-Male Stated Complaint: LEFT SIDE GROIN PAIN/FLANK PAIN Time Seen by Provider: 02/06/20 23:16 Source: patient Mode of arrival: Ambulatory Limitations: No Limitations - History of Present Illness Initial Comments: Mr. Alfred is a 29-year-old -[place] male who presents with left lower quadrant pain x3 days. He states intermittent constipation. Last bowel movement hard firm rabbit pellets today. There is no fever, chills, nausea vomiting, or no history of abdominal surgeries. Patient is tolerating p.o. intake without symptoms. He states pain radiates to left suprapubic and groin however there is no dysuria ,frequency ,urgency ,or penile discharge. There is no groin swelling. patient denies concern for STI. pt is exacerbated by "over eating" pt is rx nexium for GERD. There are no other modifying factors. MD Complaint: abdominal pain Onset/Timin -: days(s) Location: LLQ Radiation: LLQ Severity: moderate Severity scale (0 -10): 4 Quality: aching Consistency: intermittent Improves With: nothing Worsens With: eating Associated Symptoms: constipation. denies: nausea, vomiting, diarrhea, fever, chills, dysuria, hematemesis, hematochezia, melena, hematuria - Related Data Previous Rx's Medication Instructions Recorded Last Taken Type Naproxen [Naprosyn TAB] 500 mg PO BID PRN #30 tablet 05/22/19 Unknown Rx Cyclobenzaprine [Flexeril 10 MG 10 mg PO QHS PRN #15 tablet 07/11/19 Unknown Rx TAB] Ibuprofen [Motrin 800 MG tab] 800 mg PO Q8HR PRN #30 tablet 07/11/19 Unknown Rx Albuterol INH(or & Nicu Only) 1 puff IH QID PRN #8.5 gram 11/21/19 Unknown Rx [ProAir HFA Inhaler] guaiFENesin/CODEINE [Robitussin AC] 5 ml PO Q4HR PRN #120 oral.liqd 11/21/19 Unknown Rx Ibuprofen [Motrin 800 MG tab] 800 mg PO Q8HR PRN #30 tablet 02/07/20 Unknown Rx polyethylene glycoL 3350 [Miralax 17 gm PO BID PRN #14 packet 02/07/20 Unknown Rx 3350] Allergies Allergy/AdvReac Type Severity Reaction Status Date / Time No Known Allergies Allergy Verified 09/10/19 21:58 ED Review of Systems ROS: Stated complaint: LEFT SIDE GROIN PAIN/FLANK PAIN Other details as noted in HPI Constitutional: denies: chills, fever Eyes: denies: eye pain, eye discharge, vision change ENT: denies: ear pain, throat pain Respiratory: denies: cough, shortness of breath, wheezing Cardiovascular: denies: chest pain, palpitations Endocrine: no symptoms reported Gastrointestinal: abdominal pain, constipation. denies: nausea, vomiting, diarrhea, hematemesis, melena, hematochezia Genitourinary: hematuria. denies: urgency, dysuria, frequency Musculoskeletal: back pain (left flank ). denies: joint swelling, arthralgia Skin: denies: rash, lesions Neurological: denies: headache, weakness, paresthesias Psychiatric: denies: anxiety, depression Hematological/Lymphatic: denies: easy bleeding, easy bruising ED Past Medical Hx - Past Medical History Previous Medical History?: No Additional medical history: first degree heart block? - Surgical History Past Surgical History?: No - Social History Smoking Status: Current Every Day Smoker Substance Use Type: None - Medications Home Medications: Home Medications Medication Instructions Recorded Confirmed Last Taken Type Naproxen [Naprosyn TAB] 500 mg PO BID PRN #30 tablet 05/22/19 Unknown Rx Cyclobenzaprine [Flexeril 10 MG 10 mg PO QHS PRN #15 tablet 07/11/19 Unknown Rx TAB] Ibuprofen [Motrin 800 MG tab] 800 mg PO Q8HR PRN #30 tablet 07/11/19 Unknown Rx Albuterol INH(or & Nicu Only) 1 puff IH QID PRN #8.5 gram 11/21/19 Unknown Rx [ProAir HFA Inhaler] guaiFENesin/CODEINE [Robitussin AC] 5 ml PO Q4HR PRN #120 oral.liqd 11/21/19 Unknown Rx Ibuprofen [Motrin 800 MG tab] 800 mg PO Q8HR PRN #30 tablet 02/07/20 Unknown Rx polyethylene glycoL 3350 [Miralax 17 gm PO BID PRN #14 packet 02/07/20 Unknown Rx 3350] ED Physical Exam - General Limitations: No Limitations General appearance: alert, in no apparent distress - Head Head exam: Present: atraumatic, normocephalic - Eye Eye exam: Present: normal appearance, PERRL, EOMI Pupils: Present: normal accommodation - ENT ENT exam: Present: mucous membranes moist - Neck Neck exam: Present: normal inspection - Respiratory Respiratory exam: Present: normal lung sounds bilaterally. Absent: respiratory distress, wheezes - Cardiovascular Cardiovascular Exam: Present: regular rate, normal rhythm, normal heart sounds. Absent: systolic murmur, diastolic murmur, rubs, gallop - GI/Abdominal GI/Abdominal exam: Present: distended (mild firm LLQ ), tenderness (LLQ), normal bowel sounds. Absent: guarding, rebound, rigid, bruit, hernia - Expanded GI/Abdominal Exam Expanded GI/Abdominal exam: Absent: psoas sign, obturator sign, heel tap sign, Cancino's sign, Rovsing's sign, tenderness at [place]bur[place]'s Point, ascites - Rectal Rectal exam: Present: deferred - Extremities Exam Extremities exam: Present: normal inspection, full ROM, normal capillary refill. Absent: tenderness - Back Exam Back exam: Present: normal inspection, full ROM. Absent: tenderness, CVA tenderness (R), CVA tenderness (L), vertebral tenderness - Neurological Exam Neurological exam: Present: alert, oriented X3, CN II-XII intact, normal gait - Psychiatric Psychiatric exam: Present: normal affect, normal mood - Skin Skin exam: Present: warm, dry, intact, normal color. Absent: rash ED Course Vital Signs 02/06/20 23:21 Respiratory 16 Rate ED Medical Decision Making - Lab Data Labs 02/06/20 Unknown Urine Color Yellow Urine Turbidity Clear Urine pH 7.0 Ur Specific [place] 1.021 Urine Protein <15 mg/dl Urine Glucose (UA) Neg Urine Ketones Neg Urine Blood Neg Urine Nitrite Neg Urine Bilirubin Neg Urine Urobilinogen 2.0 Ur Leukocyte Esterase Neg Urine WBC (Auto) < 1.0 Urine RBC (Auto) 1.0 Urine Bacteria (Auto) 1+ - Radiology Data Radiology results: report reviewed, image reviewed no obstruction normal gas pattern - Medical Decision Making KUB: mild constipation, UA normal, pt states pain is improved, plian: nsaids pnrn, continue nexium as directed follow up with pcp in 2-3 days. pt verbalized agreement and understanding of dischare instructions. Critical care attestation.: If time is entered above; I have spent that time in minutes in the direct care of this critically ill patient, excluding procedure time. ED Disposition Clinical Impression: Abdominal pain Qualifiers: Abdominal location: left lower quadrant Qualified Code(s): R10.32 - Left lower quadrant pain Constipation Qualifiers: Constipation type: other constipation type Qualified Code(s): K59.09 - Other constipation Disposition: - TO HOME OR SELFCARE Is pt being admited?: No Does the pt Need Aspirin: No Condition: Stable Instructions: Abdominal Pain (ED), Constipation (ED), High Fiber Diet (ED) Prescriptions: polyethylene glycoL 3350 [Miralax 3350] 17 gm PO BID PRN #14 packet PRN Reason: Constipation Ibuprofen [Motrin 800 MG tab] 800 mg PO Q8HR PRN #30 tablet PRN Reason: pain Referrals: ALLEN VEGA MD [Staff Physician] - 3-5 Days Forms: Work/School Release Form(ED) Time of Disposition: 00:55
[2020-02-07 00:19] LABS: Bacteria,Urine 1+ /HPF (Negative); Bilirubin,Urine NEG (Negative); Blood,Urine NEG (Negative); Color,Urine Yellow (Yellow); Protein,Urine <15 mg/dL mg/dL (Negative); WBC,Urine < 1.0 /HPF (0.0-6.0)
--- NOTE | 2020-02-07 00:28 | XRay Report ---
ABDOMEN 1 VIEW INDICATION / CLINICAL INFORMATION: abd constipation. Left groin and flank pain. COMPARISON: None available. FINDINGS: TUBES / LINES: None. BOWEL GAS PATTERN: No significant abnormality. FREE AIR / EXTRALUMINAL GAS: None seen. ADDITIONAL FINDINGS: No calcified urinary tract stones visualized. IMPRESSION: 1. No acute findings. Signer Name: Tim Guerra MD Signed: 02/07/2020 12:24 AM Workstation Name: [id number]
== END 2020-02-07 01:17 | disposition home or self-care (01) ==
LOC: ED 22:57
DX: R10.32 Left lower quadrant pain (principal); K59.00 Constipation, unspecified; F17.200 Nicotine dependence, unspecified, uncomplicated; Z79.1 Long term (current) use of non-steroidal anti-inflammatories (NSAID); Z79.899 Other long term (current) drug therapy
CPT/HCPCS: 74018; 81001

== ENCOUNTER 2020-07-09 23:18 | Emergency (ER) | payer SELFPAY ==
[2020-07-09 23:55] VITALS: BP 130/73
== END 2020-07-10 02:35 | disposition left against medical advice (07) ==
LOC: ED 23:18
DX: R07.89 Other chest pain (principal); Z53.21 Procedure and treatment not carried out due to patient leaving prior to being seen by health care provider

== ENCOUNTER 2020-07-24 19:45 | Emergency (ER) | payer SELFPAY ==
[2020-07-24 20:43] VITALS: BP 139/93
[2020-07-24] MEDS ORDERED: IBUPROFEN 800 MG TAB PO ONE (22:45)
[2020-07-24] MEDS ORDERED: predniSONE 20 MG TAB PO ONE (22:45)
--- NOTE | 2020-07-24 22:58 | Emergency Department Report ---
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 pt endorses hx of same. state he woke with tingling 2 weeks ago. Symptoms exacerbated by completing work duties. pt is right handed. ED Review of Systems ROS: Stated complaint: NUMBNESS 2WEEKS Other details as noted in HPI Constitutional: denies: chills, fever Eyes: denies: eye pain, eye discharge, vision change ENT: denies: ear pain, throat pain Respiratory: denies: cough, shortness of breath, wheezing Cardiovascular: denies: chest pain, palpitations Endocrine: no symptoms reported Gastrointestinal: denies: abdominal pain, nausea, diarrhea Genitourinary: denies: urgency, dysuria Musculoskeletal: myalgia (left distal finger 2, 3, and 4th digit tips) Skin: denies: rash, lesions Neurological: paresthesias (left distal finger tips ). denies: headache, weakness, vertigo Psychiatric: denies: anxiety, depression Hematological/Lymphatic: denies: easy bleeding, easy bruising ED Past Medical Hx - Past Medical History Previous Medical History?: Yes Additional medical history: first degree heart block? - Surgical History Past Surgical History?: No - Social History Smoking Status: Never Smoker Substance Use Type: Marijuana - Medications Home Medications: Home Medications Medication Instructions Recorded Confirmed Last Taken Type Naproxen [Naprosyn TAB] 500 mg PO BID PRN #30 tablet 05/22/19 Unknown Rx Cyclobenzaprine [Flexeril 10 MG 10 mg PO QHS PRN #15 tablet 07/11/19 Unknown Rx TAB] Ibuprofen [Motrin 800 MG tab] 800 mg PO Q8HR PRN #30 tablet 07/11/19 Unknown Rx Albuterol Mdi (or & Nicu Only) 1 puff IH QID PRN #8.5 gram 11/21/19 Unknown Rx [ProAir HFA Inhaler] guaiFENesin/CODEINE [Robitussin AC] 5 ml PO Q4HR PRN #120 oral.liqd 11/21/19 Unknown Rx Ibuprofen [Motrin 800 MG tab] 800 mg PO Q8HR PRN #30 tablet 02/07/20 Unknown Rx polyethylene glycoL 3350 [Miralax 17 gm PO BID PRN #14 packet 02/07/20 Unknown Rx 3350] Naproxen 500 mg PO BID PRN #30 tablet 07/24/20 Unknown Rx predniSONE [Deltasone] 40 mg PO QDAY 5 Days #10 tab 07/24/20 Unknown Rx Upper Extremity Exam - Exam General: Vital signs noted. No distress. Alert and acting appropriately. Head and Torso: No HEENT Abnormality, No Neck Tenderness, No Chest/Lungs Abnormality, No Abdominal Tenderness, No Back Tenderness Shoulder Exam: Yes Normal Range of Motion in Shoulder, No Shoulder Tenderness, No Clavicle Tenderness, No Shoulder Deformity, No AC Joint Tenderness Arm Exam: No Arm/Humerus Tenderness, No Arm Deformity Forearm: No Forearm Tenderness, No Forearm Deformity, No Pain with Pronation, No Pain with Supination Wrist: Yes Normal ROM in Wrist, No Wrist Tenderness, No Wrist Deformity, No Snuffbox Tenderness, No Pain with Axial Thumb Compression Hand: Yes Normal ROM in Digit(s), No Hand Tenderness, No Hand Deformity, No Digit Tenderness, No Digit(s) Deformity, No Tendon Dysfunction CMS Exam: No Broken Skin, No Normal Distal Pulses, No Normal Capillary Refill, No Normal Distal Sensation ED Course Vital Signs 07/24/20 20:41 Temperature 98.7 F Pulse Rate 62 Respiratory 18 Rate Blood Pressure 139/93 O2 Sat by Pulse 96 Oximetry ED Medical Decision Making - Medical Decision Making this is recurring problem for this patient, rom intact, group tester <3 sec, head of product are equal, there is no deformity, there is no carpal region pain or swelling, tingling to finger tips only, there is no neck pain , he denies fall, injury, or trauma. plan: nsaids, short burst steroids, wrist and hand exercises, follow up with primary care doctor in 2-3 days. Pt verbalized agreement and understanding of discharge plan. Critical care attestation.: If time is entered above; I have spent that time in minutes in the direct care of this critically ill patient, excluding procedure time. ED Disposition Clinical Impression: Paresthesia of finger, Tingling of left upper extremity Disposition: - TO HOME OR SELFCARE Is pt being admited?: No Does the pt Need Aspirin: No Condition: Stable Instructions: Paresthesia (ED) Prescriptions: predniSONE [Deltasone] 40 mg PO QDAY 5 Days #10 tab Naproxen 500 mg PO BID PRN #30 tablet PRN Reason: pain Referrals: NICOLE MATA MD [Staff Physician] - 3-5 Days MICHEAL CARMICHAEL MD [Staff Physician] - 3-5 Days Forms: Work/School Release Form(ED) Time of Disposition: 23:11
== END 2020-07-24 23:25 | disposition home or self-care (01) ==
LOC: ED 19:45
DX: R20.2 Paresthesia of skin (principal); F12.10 Cannabis abuse, uncomplicated; Z79.1 Long term (current) use of non-steroidal anti-inflammatories (NSAID); Z79.899 Other long term (current) drug therapy
CPT/HCPCS: 99282; J7512

== ENCOUNTER 2020-09-30 18:34 | Emergency (ER) | payer SELFPAY ==
[2020-09-30 19:12] VITALS: BP 127/86
--- NOTE | 2020-09-30 19:34 | Emergency Department Report ---
Chief Complaint: Medical Clearance Stated Complaint: LOSS OF SMELL Time Seen by Provider: 09/30/20 19:26 - HPI History of Present Illness: Patient is a 29-year-old male presents emergency room with complaints of loss of sense of smell for 3 days. He states he has an occasional mild dry cough. He denies any fever, nausea, vomiting, diarrhea, shortness of breath, chest pain, abdominal pain, ear pain, sore throat. He denies any known sick contacts. He denies any recent travel. No past medical history. No allergies to medications. He endorses marijuana use. Vitals are normal No hypoxia, no fever, no tachycardia On exam: Non toxic appearing, no acute distress atraumatic, normocephalic normal appearance of the eyes, PERRL, EOMI, no periorbital edema or ecchymosis moist mucus membranes, normal oropharynx, normal TMs and canals bilaterally regular heart rate and rhythm, no gallops, no rubs, no murmurs breath sounds are clear bilaterally, no w/r/r, no stridor, no respiratory distress, no accessory muscle use A&O x4, no focal neuro deficit skin is warm, dry, intact Patient is presenting with viral-like symptoms His symptoms could possibly be related to COVID-19 given loss of sense of smell Discussed COVID-19 with patient, discussed strict return precautions, discussed outpatient testing, discussed self quarantine Patient has no clinical signs or symptoms of bacterial pneumonia or bacterial bronchitis He has no clinical signs or symptoms of dehydration Patient does not meet hospital criteria for COVID-19 hospital testing or for admission Discussed supportive care and symptomatic treatment with patient Discussed very strict return precautions Medical screening examination performed there is no threat to life or limb at this time - Exam Vital Signs: Vital Signs 09/30/20 19:09 Temperature 98.4 F Pulse Rate 62 Respiratory 20 Rate Blood Pressure 127/86 O2 Sat by Pulse 97 Oximetry MSE screening note: Focused history and physical exam performed. Due to findings the following was ordered: ED Disposition for MSE Clinical Impression: Viral URI Disposition: MED SCREENING EXAM-LEFT Is pt being admited?: No Does the pt Need Aspirin: No Condition: Stable Instructions: Viral Respiratory Infection, [id number], COVID-19, COVID-19: How to Protect Yourself and Others - CDC, Prevent the Spread of COVID-19 if You Are Sick - [facility] [place] Additional Instructions: Please increase your fluid intake over the next several days. May take Tylenol as needed for fever or body aches. May take [id number] cold symptom relief medication such as Mucinex or TheraFlu. Follow-up with a primary care doctor for reexamination. Return to emergency room immediately for any new or worsening symptoms including but not limited to difficulty breathing, shortness of breath, severe chest pain, unable to tolerate by mouth intake, etc. Please self quarantine for 10 days from the onset of your symptoms. Please do not go out in public. If you are around others at home please wear a mask. If you need to cough or sneeze please do so in a napkin and immediately throw it away and immediately wash your hands. Wash your hands frequently. Wipe everything down. Recommend for you to get COVID-19 testing, may have this done at primary care doctor, health department, [facility] testing center. Referrals: MITZI KELLY MD [Staff Physician] - 2-3 Days [facility] [Provider Group] - 2-3 Days [facility], [LAB/CONTRACT] - 2-3 Days Time of Disposition: 19:35 Print Language: MALTESE
== END 2020-09-30 20:34 | disposition left against medical advice (07) ==
LOC: ED 18:34
DX: R43.0 Anosmia (principal); Z53.21 Procedure and treatment not carried out due to patient leaving prior to being seen by health care provider

== ENCOUNTER 2020-10-30 14:54 | Emergency (ER) | payer OTHER ==
[2020-10-30 17:14] VITALS: BP 131/75
== END 2020-10-30 17:10 | disposition left against medical advice (07) ==
LOC: ED 14:54
DX: R07.9 Chest pain, unspecified (principal); Z53.21 Procedure and treatment not carried out due to patient leaving prior to being seen by health care provider
CPT/HCPCS: 93005

== ENCOUNTER 2020-11-19 00:26 | Emergency (ER) | payer OTHER ==
--- NOTE | 2020-11-19 00:47 | Emergency Department Report ---
ED Abdominal Pain HPI - General Chief Complaint: Abdominal Pain Stated Complaint: RT SIDE PAIN Time Seen by Provider: 11/19/20 00:43 Source: patient Mode of arrival: Ambulatory Limitations: No Limitations - History of Present Illness Initial Comments: 29-year-old male presents to ED with right flank pain x2 days. Patient states he noticed it when he was washing his car. States pain is worse with twisting of the torso. He denies any fever, cough, shortness of breath, nausea, vomiting, dysuria, hematuria. MD Complaint: flank pain -: days(s) (2) Location: R flank Radiation: none Migration to: no migration Severity: mild Quality: sharp Consistency: intermittent Improves With: nothing Worsens With: movement Associated Symptoms: denies: nausea, vomiting, diarrhea, fever, dysuria, hematuria - Related Data Previous Rx's Medication Instructions Recorded Last Taken Type Naproxen [Naprosyn TAB] 500 mg PO BID PRN #30 tablet 05/22/19 Unknown Rx Cyclobenzaprine [Flexeril 10 MG 10 mg PO QHS PRN #15 tablet 07/11/19 Unknown Rx TAB] Ibuprofen [Motrin 800 MG tab] 800 mg PO Q8HR PRN #30 tablet 07/11/19 Unknown Rx Albuterol Mdi (or & Nicu Only) 1 puff IH QID PRN #8.5 gram 11/21/19 Unknown Rx [ProAir HFA Inhaler] guaiFENesin/CODEINE [Robitussin AC] 5 ml PO Q4HR PRN #120 oral.liqd 11/21/19 Unknown Rx Ibuprofen [Motrin 800 MG tab] 800 mg PO Q8HR PRN #30 tablet 02/07/20 Unknown Rx polyethylene glycoL 3350 [Miralax 17 gm PO BID PRN #14 packet 02/07/20 Unknown Rx 3350] Naproxen 500 mg PO BID PRN #30 tablet 07/24/20 Unknown Rx predniSONE [Deltasone] 40 mg PO QDAY 5 Days #10 tab 07/24/20 Unknown Rx Naproxen [Naprosyn] 500 mg PO BID #20 tablet 11/19/20 Unknown Rx methOCARBAMOL [Robaxin TAB] 500 mg PO Q8HR PRN #20 tablet 11/19/20 Unknown Rx Allergies Allergy/AdvReac Type Severity Reaction Status Date / Time No Known Allergies Allergy Verified 09/10/19 21:58 ED Review of Systems ROS: Stated complaint: RT SIDE PAIN Other details as noted in HPI Comment: All other systems reviewed and negative Constitutional: denies: chills, fever Respiratory: denies: cough, shortness of breath Gastrointestinal: abdominal pain. denies: nausea, vomiting, diarrhea Genitourinary: denies: dysuria, frequency, hematuria ED Past Medical Hx - Past Medical History Previous Medical History?: Yes Hx GERD: Yes Additional medical history: first degree heart block? - Surgical History Past Surgical History?: No - Social History Smoking Status: Former Smoker - Medications Home Medications: Home Medications Medication Instructions Recorded Confirmed Last Taken Type Naproxen [Naprosyn TAB] 500 mg PO BID PRN #30 tablet 05/22/19 Unknown Rx Cyclobenzaprine [Flexeril 10 MG 10 mg PO QHS PRN #15 tablet 07/11/19 Unknown Rx TAB] Ibuprofen [Motrin 800 MG tab] 800 mg PO Q8HR PRN #30 tablet 07/11/19 Unknown Rx Albuterol Mdi (or & Nicu Only) 1 puff IH QID PRN #8.5 gram 11/21/19 Unknown Rx [ProAir HFA Inhaler] guaiFENesin/CODEINE [Robitussin AC] 5 ml PO Q4HR PRN #120 oral.liqd 11/21/19 Unknown Rx Ibuprofen [Motrin 800 MG tab] 800 mg PO Q8HR PRN #30 tablet 02/07/20 Unknown Rx polyethylene glycoL 3350 [Miralax 17 gm PO BID PRN #14 packet 02/07/20 Unknown Rx 3350] Naproxen 500 mg PO BID PRN #30 tablet 07/24/20 Unknown Rx predniSONE [Deltasone] 40 mg PO QDAY 5 Days #10 tab 07/24/20 Unknown Rx Naproxen [Naprosyn] 500 mg PO BID #20 tablet 11/19/20 Unknown Rx methOCARBAMOL [Robaxin TAB] 500 mg PO Q8HR PRN #20 tablet 11/19/20 Unknown Rx ED Physical Exam - General Limitations: No Limitations General appearance: alert, in no apparent distress - Head Head exam: Present: atraumatic, normocephalic - Eye Eye exam: Present: normal appearance, EOMI - ENT ENT exam: Present: mucous membranes moist - Neck Neck exam: Present: normal inspection - Respiratory Respiratory exam: Present: normal lung sounds bilaterally. Absent: respiratory distress - Cardiovascular Cardiovascular Exam: Present: regular rate, normal rhythm - GI/Abdominal GI/Abdominal exam: Present: soft, other (No right upper quadrant or right lower quadrant tenderness; tenderness present to the right flank just below the lateral aspect of the chest wall). Absent: distended - Extremities Exam Extremities exam: Present: normal inspection - Back Exam Back exam: Present: normal inspection. Absent: CVA tenderness (R), CVA tenderness (L) - Neurological Exam Neurological exam: Present: alert, oriented X3 - Psychiatric Psychiatric exam: Present: normal affect, normal mood - Skin Skin exam: Present: warm, dry, intact, normal color ED Course Vital Signs 11/19/20 11/19/20 11/19/20 00:30 01:11 01:13 Temperature 98.0 F 98.8 F Pulse Rate 60 62 Respiratory 17 12 12 Rate Blood Pressure 141/94 Blood Pressure 141/92 [Left] O2 Sat by Pulse 98 98 98 Oximetry ED Medical Decision Making - Lab Data Result diagrams: 11/19/20 00:54 11/19/20 00:54 - Radiology Data Radiology results: report reviewed, image reviewed - Medical Decision Making 29-year-old male presents to ED with 2-day history of right flank pain, worse with movement of the torso. CT shows 2 mm ureteral stone. UA is negative, no RBCs present. Pain possibly secondary to the stone or possibly due to muscle strain. Toradol given, patient feeling much better at this time. Patient will be discharged home with prescriptions. Outpatient follow-up advised, return precautions given. - Differential Diagnosis muscle strain, kidney stone Critical care attestation.: If time is entered above; I have spent that time in minutes in the direct care of this critically ill patient, excluding procedure time. ED Disposition Clinical Impression: Flank pain, Kidney stone on right side Disposition: - TO HOME OR SELFCARE Is pt being admited?: No Condition: Stable Instructions: Renal Colic, [id number], Flank Pain, Adult, [id number], Dietary Guidelines to Help Prevent Kidney Stones Prescriptions: Naproxen [Naprosyn] 500 mg PO BID #20 tablet methOCARBAMOL [Robaxin TAB] 500 mg PO Q8HR PRN #20 tablet PRN Reason: Muscle Spasm Referrals: [facility] [Other] - 3-5 Days JOSE BURGER MD [Staff Physician] - as needed Time of Disposition: 01:38
--- NOTE | 2020-11-19 01:14 | Cat Scan Report ---
CT ABDOMEN AND PELVIS WITHOUT CONTRAST INDICATION / CLINICAL INFORMATION: flank and right pelvic pain. TECHNIQUE: Axial CT images were obtained through the abdomen and pelvis without IV contrast. All CT scans at [facility] are performed using CT dose reduction for ALARA by means of automated exposure control. COMPARISON: None available. FINDINGS: LOWER CHEST: No significant abnormality. LIVER: No significant abnormality. GALLBLADDER: No significant abnormality. BILE DUCTS: No significant abnormality. PANCREAS: No significant abnormality. SPLEEN: No significant abnormality. ADRENALS: No significant abnormality. RIGHT KIDNEY and URETER: There is a 2 mm stone in the right ureter at the level the [place] , series 2 image 126. LEFT KIDNEY and URETER: No significant abnormality. STOMACH and SMALL BOWEL: No significant abnormality. COLON: No significant abnormality. APPENDIX: No significant abnormality. PERITONEUM: No free fluid. No free air. No fluid collection. LYMPH NODES: No significant adenopathy. AORTA and ARTERIES: No significant abnormality. IVC and VEINS: No significant abnormality. URINARY BLADDER: No significant abnormality. REPRODUCTIVE ORGANS: No significant abnormality. ADDITIONAL FINDINGS: None. SKELETAL SYSTEM: No acute abnormality IMPRESSION: 1. There is a 2 mm stone in the right ureter at the level the [place]. There is no hydronep hrosis. 2. There is no bowel obstruction, inflammation, or free air. Signer Name: Lucas Britton MD Signed: 11/19/2020 1:09 AM Workstation Name: [id number]
[2020-11-19 01:15] VITALS: BP 141/92
[2020-11-19] MEDS ORDERED: KETOROLAC 30 MG/1 ML INJ IM ONE (01:16)
[2020-11-19 01:25] LABS: Basophils % (Auto) 0.5 % (0.0-1.8); Eosinophils # (Auto) 0.2 K/mm3 (0.0-0.4); Eosinophils % (Auto) 2.4 % (0.0-4.3); Hematocrit 44.2 % (35.5-45.6); Hemoglobin 15.3 gm/dl (11.8-15.2); Lymphocytes # (Auto) 2.9 K/mm3 (1.2-5.4); Lymphocytes % (Auto) 38.3 % (13.4-35.0); Mean Corpuscular HGB Conc 35 % (32-34); Mean Corpuscular Volume 95 fl (84-94); Monocytes # (Auto) 0.6 K/mm3 (0.0-0.8); Monocytes % (Auto) 8.3 % (0.0-7.3); Platelet Count 248 K/mm3 (140-440); Red Blood Count 4.68 M/mm3 (3.65-5.03)
[2020-11-19 01:26] LABS: Bilirubin,Urine NEG (Negative); Blood,Urine NEG (Negative); Color,Urine Yellow (Yellow); Mucus,Urine FEW /HPF; Protein,Urine <15 mg/dL mg/dL (Negative); RBC,Urine < 1.0 /HPF (0.0-6.0); Urobilinogen,Urine < 2.0 mg/dL (<2.0); WBC,Urine < 1.0 /HPF (0.0-6.0)
[2020-11-19 01:31] LABS: Alanine Aminotransferase 19 units/L (7-56); Albumin 4.3 g/dL (3.9-5); BUN/Creatinine Ratio 15; Blood Urea Nitrogen 12 mg/dL (9-20); Calcium 9.3 mg/dL (8.4-10.2); Hemolysis Index 17
[2020-11-19 01:32] LABS: Bilirubin,Direct < 0.2 mg/dL (0-0.2)
== END 2020-11-19 02:57 | disposition home or self-care (01) ==
LOC: ED 00:26
DX: N20.0 Calculus of kidney (principal); K21.9 Gastro-esophageal reflux disease without esophagitis; Z87.891 Personal history of nicotine dependence; Z79.899 Other long term (current) drug therapy
CPT/HCPCS: 36415; 74176; 80048; 80076; 81001; 83690; 85025; 96372; 99284; J1885

== ENCOUNTER 2021-01-13 08:28 | Emergency (ER) | payer OTHER ==
[2021-01-13] MEDS ORDERED: methylPREDNISolone Sod Succinate 125 MG/2 ML INJ IV ONE (10:30)
[2021-01-13] MEDS ORDERED: IPRATROPIUM/ALBUTEROL SULFATE 3 ML AMPUL.NEB IH ONE (10:30)
--- NOTE | 2021-01-13 10:33 | Emergency Department Report ---
ED Chest Pain HPI - General Chief Complaint: Chest Pain Stated Complaint: CHEST PAIN/RT SIDE BODY PAIN Time Seen by Provider: 01/13/21 10:02 Source: patient Mode of arrival: Ambulatory Limitations: No Limitations - History of Present Illness Initial Comments: This is a 30-year-old -[place] male presents to the emergency department with complaint of a 24-hour period of sharp intermittent right-sided chest pains. Patient says that the pain occurs with inspiration and is especially bad with deep inspiration. When it occurs it is 10 out of 10 in intensity. Inspiration or deep breathing is the aggravating factor and there is no known alleviating factor other than not taking such a deep breath. He denies any fever, back pain, lower extremity swelling, nausea, vomiting or diaphoresis. The patient denies any other past medical history. He is a tobacco smoker but denies any illicit drug use. No recent travel or sick contacts at home. Patient denies any family history of early cardiac disease or [place] in his nuclear family. He tried some ibuprofen yesterday for his symptoms without any relief. - Related Data Previous Rx's Medication Instructions Recorded Last Taken Type Naproxen [Naprosyn TAB] 500 mg PO BID PRN #30 tablet 05/22/19 Unknown Rx Albuterol Mdi (or & Nicu Only) 1 puff IH QID PRN #8.5 gram 11/21/19 Unknown Rx [ProAir HFA Inhaler] guaiFENesin/CODEINE [Robitussin AC] 5 ml PO Q4HR PRN #120 oral.liqd 11/21/19 Unknown Rx Ibuprofen [Motrin 800 MG tab] 800 mg PO Q8HR PRN #30 tablet 02/07/20 Unknown Rx polyethylene glycoL 3350 [Miralax 17 gm PO BID PRN #14 packet 02/07/20 Unknown Rx 3350] Naproxen 500 mg PO BID PRN #30 tablet 07/24/20 Unknown Rx predniSONE [Deltasone] 40 mg PO QDAY 5 Days #10 tab 07/24/20 Unknown Rx Naproxen [Naprosyn] 500 mg PO BID #20 tablet 11/19/20 Unknown Rx methOCARBAMOL [Robaxin TAB] 500 mg PO Q8HR PRN #20 tablet 11/19/20 Unknown Rx Cyclobenzaprine [Flexeril 10 MG 10 mg PO TID PRN #12 tablet 01/13/21 Unknown Rx TAB] Ibuprofen [Motrin 800 MG tab] 800 mg PO Q8HR PRN #20 tablet 01/13/21 Unknown Rx Allergies Allergy/AdvReac Type Severity Reaction Status Date / Time No Known Allergies Allergy Verified 01/13/21 08:36 Heart Score - HEART Score History: Slightly suspicious EKG: Normal Age: < 45 Risk factors: 1-2 risk factors Troponin: < normal limit HEART Score: 1 - Critical Actions Critical Actions: 0-3 pts:0.9-1.7%risk of adverse cardiac event.Candidate for discharge ED Review of Systems ROS: Stated complaint: CHEST PAIN/RT SIDE BODY PAIN Other details as noted in HPI Comment: All other systems reviewed and negative Constitutional: denies: chills, fever Eyes: denies: eye pain, vision change ENT: denies: ear pain, throat pain Respiratory: denies: cough, shortness of breath Cardiovascular: chest pain. denies: edema Gastrointestinal: denies: abdominal pain, vomiting Genitourinary: denies: dysuria, discharge Musculoskeletal: denies: back pain, arthralgia Skin: denies: rash, lesions Neurological: denies: headache, weakness ED Past Medical Hx - Past Medical History Hx GERD: Yes Additional medical history: first degree heart block? - Social History Smoking Status: Never Smoker Substance Use Type: Marijuana - Medications Home Medications: Home Medications Medication Instructions Recorded Confirmed Last Taken Type Naproxen [Naprosyn TAB] 500 mg PO BID PRN #30 tablet 05/22/19 Unknown Rx Albuterol Mdi (or & Nicu Only) 1 puff IH QID PRN #8.5 gram 11/21/19 Unknown Rx [ProAir HFA Inhaler] guaiFENesin/CODEINE [Robitussin AC] 5 ml PO Q4HR PRN #120 oral.liqd 11/21/19 Unknown Rx Ibuprofen [Motrin 800 MG tab] 800 mg PO Q8HR PRN #30 tablet 02/07/20 Unknown Rx polyethylene glycoL 3350 [Miralax 17 gm PO BID PRN #14 packet 02/07/20 Unknown Rx 3350] Naproxen 500 mg PO BID PRN #30 tablet 07/24/20 Unknown Rx predniSONE [Deltasone] 40 mg PO QDAY 5 Days #10 tab 07/24/20 Unknown Rx Naproxen [Naprosyn] 500 mg PO BID #20 tablet 11/19/20 Unknown Rx methOCARBAMOL [Robaxin TAB] 500 mg PO Q8HR PRN #20 tablet 11/19/20 Unknown Rx Cyclobenzaprine [Flexeril 10 MG 10 mg PO TID PRN #12 tablet 01/13/21 Unknown Rx TAB] Ibuprofen [Motrin 800 MG tab] 800 mg PO Q8HR PRN #20 tablet 01/13/21 Unknown Rx ED Physical Exam - General Limitations: No Limitations - Other Other exam information: GENERAL: The patient is well-developed well-nourished. HENT: Normocephalic. Atraumatic. Patient has moist mucous membranes. EYES: Extraocular motions are intact. NECK: Supple. Trachea is midline. CHEST/LUNGS: Clear to auscultation. There is no respiratory distress noted. HEART/CARDIOVASCULAR: Regular. There is no tachycardia. There is no murmur. ABDOMEN: Abdomen is soft, nontender. Patient has normal bowel sounds. There is no abdominal distention. SKIN: Skin is warm and dry. NEURO: The patient is awake, alert, and oriented. The patient is cooperative. Normal speech. MUSCULOSKELETAL: There is no tenderness or deformity. There is no limitation range of motion. ED Course Vital Signs 01/13/21 01/13/21 01/13/21 08:36 10:00 11:11 Temperature 98 F Pulse Rate 62 59 L Pulse Rate [ 76 Bilateral Throughout] Respiratory 20 Rate Respiratory 15 Rate [Bilateral Throughout] Blood Pressure 130/103 Blood Pressure 126/85 [Left] O2 Sat by Pulse 96 97 Oximetry MELIA score - Melia Score Age > 65: (0) No Aspirin use within the Past 7 Days: (0) No 3 or more CAD Risk Factors: (0) No 2 or more Angina events in past 24 hrs: (1) Yes (If pain is considered angina. More likely to be musculoskeletal) Known CAD with more than 50% Stenosis: (0) No Elevated Cardiac Markers: (0) No (not tested) ST Deviation Greater than 0.5mm: (0) No MELIA Score: 1 ED Medical Decision Making - Lab Data Result diagrams: 01/13/21 10:46 01/13/21 10:46 Lab Results 01/13/21 01/13/21 01/13/21 Range/Units 10:46 10:46 10:46 WBC 5.2 (4.5-11.0) K/mm3 RBC 4.66 (3.65-5.03) M/mm3 Hgb 14.8 (11.8-15.2) gm/dl Hct 42.7 (35.5-45.6) % MCV 92 (84-94) fl MCH 32 (28-32) pg MCHC 35 H (32-34) % RDW 13.0 L (13.2-15.2) % Plt Count 236 (140-440) K/mm3 Lymph % (Auto) 35.8 H (13.4-35.0) % [place] % (Auto) 7.3 (0.0-7.3) % Eos % (Auto) 3.4 (0.0-4.3) % Baso % (Auto) 2.0 H (0.0-1.8) % Lymph # (Auto) 1.9 (1.2-5.4) K/mm3 [place] # (Auto) 0.4 (0.0-0.8) K/mm3 Eos # (Auto) 0.2 (0.0-0.4) K/mm3 Baso # (Auto) 0.1 (0.0-0.1) K/mm3 Seg Neutrophils % 51.5 (40.0-70.0) % Seg Neutrophils # 2.7 (1.8-7.7) K/mm3 D-Dimer 151.77 (0-234) ng/mlDDU Sodium 139 (137-145) mmol/L Potassium 4.1 (3.6-5.0) mmol/L Chloride 103.7 (98-107) mmol/L Carbon Dioxide 26 (22-30) mmol/L Anion Gap 13 mmol/L BUN 12 (9-20) mg/dL Creatinine 0.8 (0.8-1.3) mg/dL Estimated GFR > 60 ml/min BUN/Creatinine Ratio 15 % Glucose 107 H (75-100) mg/dL Calcium 8.8 (8.4-10.2) mg/dL Troponin T < 0.010 (0.00-0.029) ng/mL - EKG Data -: EKG Interpreted by Ms EKG shows normal: sinus rhythm, axis, intervals, QRS complexes, ST-T waves Rate: bradycardia (59 bpm) - EKG Data When compared to previous EKG there are: no significant change Interpretation: normal EKG, unchanged when compared t (10/30/20) - Radiology Data Radiology results: image reviewed interpreted by me: Chest x-ray was interpreted by me. Chest x-ray does not show any acute process. There are no pleural effusions, obvious pneumonia and there is no pneumothorax. No significant cardiomegaly. - Medical Decision Making This patient presents with right-sided sharp chest pains that of been going on since yesterday that mostly occur with inspiration. Initially I am unable to reproduce the discomfort to palpation. However, the patient began saying that he was able to reproduce it with certain movements of his head and torso. Heart and lung sounds are normal to auscultation. The patient does not appear in any respiratory or acute distress. EKG does not have any morphology consistent with ST elevation myocardial infarction or any arrhythmia. Chest x-ray does not show any pneumonia, pleural effusions, pneumothorax, or any other acute process. The patient's labs have been unremarkable including CBC, metabolic panel, negative troponin and a negative D-dimer level. Vital signs have been reassuring throughout his ED course including being afebrile. Patient was given a dose of steroids and a DuoNeb breathing treatment to treat possible pleurisy. Patient did get some mild improvement from this. Overall the patient was reevaluated multiple times over multiple hours and does feel improved. Patient is low on the heart and MELIA score. On top of the negative D-dimer the patient is low on the Wells score criteria. We had a long discussion about smoking cessation. The patient's contact information has been sent over to the [facility], and someone from their office should be contacting him shortly for close outpatient follow-up as per our hospitals low risk chest pain protocol. He will return to the emergency department with any worsening of his symptoms or with any acute distress. Critical Care Time: No Critical care attestation.: If time is entered above; I have spent that time in minutes in the direct care of this critically ill patient, excluding procedure time. ED Disposition Clinical Impression: Atypical chest pain, Intermittent right-sided chest pain Disposition: TO HOME OR SELFCARE Is pt being admited?: No Condition: Stable Instructions: Nonspecific Chest Pain, Adult Additional Instructions: Please quit smoking. Follow-up with a primary care physician in the next few days. I am sending your contact information over to the [facility], and someone from their office should be contacting you shortly for close outpatient follow-up. Just in case, I am giving you a referral for one of their cardiologists, Dr. Hyde. You have been prescribed a medication that is sedating and therefore should not be taken prior to driving, working, and responsible for children and in no way should be mixed with alcohol of any quantity. Return to the emergency department with any worsening of your symptoms, new or concerning symptoms not addressed during this current emergency department visit, or with any acute distress. Prescriptions: Cyclobenzaprine [Flexeril 10 MG TAB] 10 mg PO TID PRN #12 tablet PRN Reason: Muscle Spasm Ibuprofen [Motrin 800 MG tab] 800 mg PO Q8HR PRN #20 tablet PRN Reason: pain Referrals: PRIMARY CAREMD [Primary Care Provider] - 2-3 Days RICK HYDE MD [Staff Physician] - 2-3 Days Time of Disposition: 11:53
--- NOTE | 2021-01-13 10:53 | XRay Report ---
CHEST 2 VIEWS INDICATION / CLINICAL INFORMATION: Chest Pain. COMPARISON: 11/21/2019 FINDINGS: SUPPORT DEVICES: None. HEART / MEDIASTINUM: No significant abnormality. LUNGS / PLEURA: No significant pulmonary or pleural abnormality. No pneumothorax. ADDITIONAL FINDINGS: No significant additional findings. IMPRESSION: 1. No acute findings. No interval change. Signer Name: Altagracia Sharma MD Signed: 01/13/2021 10:49 AM Workstation Name: [id number]
[2021-01-13 11:15] LABS: Basophils # (Auto) 0.1 K/mm3 (0.0-0.1); Eosinophils # (Auto) 0.2 K/mm3 (0.0-0.4); Eosinophils % (Auto) 3.4 % (0.0-4.3); Hematocrit 42.7 % (35.5-45.6); Hemoglobin 14.8 gm/dl (11.8-15.2); Lymphocytes # (Auto) 1.9 K/mm3 (1.2-5.4); Lymphocytes % (Auto) 35.8 % (13.4-35.0); Mean Corpuscular HGB Conc 35 % (32-34); Mean Corpuscular Volume 92 fl (84-94); Monocytes # (Auto) 0.4 K/mm3 (0.0-0.8); Monocytes % (Auto) 7.3 % (0.0-7.3); Platelet Count 236 K/mm3 (140-440); Red Blood Count 4.66 M/mm3 (3.65-5.03)
[2021-01-13 11:35] LABS: BUN/Creatinine Ratio 15; Blood Urea Nitrogen 12 mg/dL (9-20); Calcium 8.8 mg/dL (8.4-10.2); Hemolysis Index 9
[2021-01-13 12:43] VITALS: BP 127/79
--- NOTE | 2021-01-14 09:20 | Electrocardiograph Report ---
[facility] Test Date: 2021-01-13 Test Time: 08:39:57 Pat Name: GREGORIO MARTINEZ Department: Room: Gender: M [employer]: [employer] : 1990 Requested By: ED DOC Order Number: [id number] Reading MD: Trent Joseph Measurements Intervals [place] Rate: 59 P: 22 AR: 198 QRS: 33 QRSD: 87 T: 35 QT: 388 QTc: 386 Interpretive Statements Sinus bradycardia No previous ECG available for comparison Electronically Signed On 01-14-2021 6:20:23 PDT by Trent Joseph
== END 2021-01-13 12:45 | disposition home or self-care (01) ==
LOC: ED 08:28
DX: R07.89 Other chest pain (principal); F12.90 Cannabis use, unspecified, uncomplicated; K21.9 Gastro-esophageal reflux disease without esophagitis; Z79.899 Other long term (current) drug therapy
CPT/HCPCS: 36415; 71046; 80048; 84484; 85025; 85379; 93005; 94640; 96374; 99284; J2930; 94644

== ENCOUNTER 2021-06-28 23:44 | Emergency (ER) | payer OTHER ==
[2021-06-29 00:43] VITALS: BP 133/70
--- NOTE | 2021-06-29 01:17 | Emergency Department Report ---
ED General Adult HPI - General Chief complaint: Extremity Injury, Lower Stated complaint: LOWER LEG PAIN/NUMBNESS Time Seen by Provider: 06/29/21 01:11 Source: patient Mode of arrival: Ambulatory Limitations: No Limitations - History of Present Illness Initial comments: 30-year-old male patient presents to the emergency department with complaints of bilateral lower extremity pain for 2 weeks. No preceding fall, trauma, or injury. Symptoms are no different today. Patient states he came to the emergency department tonight because "he was tired of dealing with it." Patient has a primary care provider but has not made an appointment since the onset of his symptoms. Patient states his right leg was slightly swollen last week. The swelling has since resolved. At that time, he also experienced numbness in his right great toe. No significant past medical history. No venous thromboembolism risk factors identified on history. Denies fever, chills, chest pain, shortness of breath, palpitations. Denies all other complaints at this time. - Related Data Previous Rx's Medication Instructions Recorded Last Taken Type Naproxen [Naprosyn TAB] 500 mg PO BID PRN #30 tablet 05/22/19 Unknown Rx Albuterol Mdi (or & Nicu Only) 1 puff IH QID PRN #8.5 gram 11/21/19 Unknown Rx [ProAir HFA Inhaler] guaiFENesin/CODEINE [Robitussin AC] 5 ml PO Q4HR PRN #120 oral.liqd 11/21/19 Unknown Rx Ibuprofen [Motrin 800 MG tab] 800 mg PO Q8HR PRN #30 tablet 02/07/20 Unknown Rx polyethylene glycoL 3350 [Miralax 17 gm PO BID PRN #14 packet 02/07/20 Unknown Rx 3350] Naproxen 500 mg PO BID PRN #30 tablet 07/24/20 Unknown Rx predniSONE [Deltasone] 40 mg PO QDAY 5 Days #10 tab 07/24/20 Unknown Rx Naproxen [Naprosyn] 500 mg PO BID #20 tablet 11/19/20 Unknown Rx methOCARBAMOL [Robaxin TAB] 500 mg PO Q8HR PRN #20 tablet 11/19/20 Unknown Rx Cyclobenzaprine [Flexeril 10 MG 10 mg PO TID PRN #12 tablet 01/13/21 Unknown Rx TAB] Ibuprofen [Motrin 800 MG tab] 800 mg PO Q8HR PRN #20 tablet 01/13/21 Unknown Rx Allergies Allergy/AdvReac Type Severity Reaction Status Date / Time No Known Allergies Allergy Verified 01/13/21 08:36 ED Review of Systems ROS: Stated complaint: LOWER LEG PAIN/NUMBNESS Other details as noted in HPI Other: GENERAL: Negative for fever, chills, weight change, anorexia, fatigue. ENT: Negative for ear pain, difficulty hearing, sore throat, nasal congestion, epistaxis. CARDIOVASCULAR: Negative for chest pain, palpitations, lower extremity swelling. PULMONARY: Negative for cough, dyspnea, wheezing, orthopnea, cyanosis. GASTROINTESTINAL: Negative for abdominal pain, nausea, vomiting, diarrhea, constipation. MUSCULOSKELETAL: Positive for leg pain. NEUROLOGICAL: Negative for headache, seizure, syncope, paresthesias, weakness. INTEGUMENTARY: Negative for erythema, rash, diaphoresis, laceration, ecchymosis. HEMATOLOGICAL: Negative for hemoptysis, hematemesis, hematochezia, hematuria. PSYCHIATRIC: Negative for hallucinations, suicidal ideation, homicidal ideation, anxiety, depression. ED Past Medical Hx - Past Medical History Previous Medical History?: Yes Hx GERD: Yes Additional medical history: first degree heart block? - Surgical History Past Surgical History?: No - Social History Smoking Status: Never Smoker Substance Use Type: Marijuana - Medications Home Medications: Home Medications Medication Instructions Recorded Confirmed Last Taken Type Naproxen [Naprosyn TAB] 500 mg PO BID PRN #30 tablet 05/22/19 Unknown Rx Albuterol Mdi (or & Nicu Only) 1 puff IH QID PRN #8.5 gram 11/21/19 Unknown Rx [ProAir HFA Inhaler] guaiFENesin/CODEINE [Robitussin AC] 5 ml PO Q4HR PRN #120 oral.liqd 11/21/19 Unknown Rx Ibuprofen [Motrin 800 MG tab] 800 mg PO Q8HR PRN #30 tablet 02/07/20 Unknown Rx polyethylene glycoL 3350 [Miralax 17 gm PO BID PRN #14 packet 02/07/20 Unknown Rx 3350] Naproxen 500 mg PO BID PRN #30 tablet 07/24/20 Unknown Rx predniSONE [Deltasone] 40 mg PO QDAY 5 Days #10 tab 07/24/20 Unknown Rx Naproxen [Naprosyn] 500 mg PO BID #20 tablet 11/19/20 Unknown Rx methOCARBAMOL [Robaxin TAB] 500 mg PO Q8HR PRN #20 tablet 11/19/20 Unknown Rx Cyclobenzaprine [Flexeril 10 MG 10 mg PO TID PRN #12 tablet 01/13/21 Unknown Rx TAB] Ibuprofen [Motrin 800 MG tab] 800 mg PO Q8HR PRN #20 tablet 01/13/21 Unknown Rx ED Physical Exam - General Limitations: No Limitations - Other Other exam information: General: Awake and alert. No acute distress. Head: Atraumatic, normocephalic. Eyes: EOMI. Pupils are equal and round. Normal sclera and conjunctiva. ENT: Oral mucosa is moist. Normal pharyngeal exam. Neck: Supple. No lymphadenopathy. Pulmonary: No respiratory distress. Clear to auscultation bilaterally. Cardiac: Regular rate and rhythm. Pulses are palpable and equal bilaterally. No lower extremity cyanosis or edema. Skin: Warm and dry. No rashes. Abdomen: Soft, non-tender, non-protuberant. No guarding, rigidity, or rebound. Bowel sounds are normal. No organomegaly or masses noted. Back: Normal alignment. No CVA tenderness. Extremities: Symmetrical. Full range of motion intact. Neurological: Alert and oriented, appropriately interactive, no focal deficits. Psych: Cooperative. Appropriate mood and affect. Speech is evenly metered. Thoughts are logically construed. ED Course Vital Signs 06/29/21 00:33 Temperature 97.8 F Pulse Rate 68 Respiratory 18 Rate Blood Pressure 133/70 O2 Sat by Pulse 95 Oximetry ED Medical Decision Making - Lab Data Result diagrams: 06/29/21 01:22 06/29/21 01:22 - Medical Decision Making Differential diagnosis including but not limited to: dehydration, electrolyte abnormality, hypoglycemia, anemia, rhabdomyolysis, deep vein thrombosis, peripheral neuropathy On reevaluation, patient remains stable. Ambulatory without assistance. D- dimer is negative. Labs unremarkable except for minimally elevated CPK. Vital signs are stable and patient is tolerating oral intake without difficulty. No clinical indication for further diagnostic work-up and/or continued ED treatment at this time. Patient will be discharged home to follow-up with primary care provider and increase his fluid/electrolyte intake. Patient expressed understanding and is agreeable to plan of care. Lifestyle modifications discussed. Strict return precautions provided. Repeat exam is unremarkable and benign. History, exam, diagnostic testing, and current condition do not suggest worrisome pathology to warrant further testing, continued ED treatment, admission, or surgical evaluation at this point. Given the low probability of a significant medical illness, it would be more likely to result in harm than benefit to perform further testing at this stage. Discussed findings, presumptive diagnosis, need for follow-up and specific signs/symptoms that should prompt immediate return to the emergency department. Instructions were explained in detail to the patient in addition to giving written discharge information. Patient expressed understanding and was given the opportunity to ask questions, all of which were satisfactorily answered prior to discharge home. Critical care attestation.: If time is entered above; I have spent that time in minutes in the direct care of this critically ill patient, excluding procedure time. ED Disposition Clinical Impression: Bilateral leg pain, Mild dehydration Disposition: HOME / SELF CARE / HOMELESS Is pt being admited?: No Does the pt Need Aspirin: No Condition: Stable Instructions: Muscle Cramps and Spasms, [id number], Dehydration, Adult Additional Instructions: Your lab results are consistent with mild dehydration. There is no evidence to suggest deep vein thrombosis (blood clot). Take Tylenol every 4 hours as needed for pain. Rest. Drink plenty of fluids. Gatorade and Powerade are excellent sources of electrolytes. Avoid prolonged heat exposure. Increase your dietary intake of potassium rich foods. Follow-up with your primary care provider this week. Call Thursday to schedule an appointment. Return to the emergency department immediately for new or worsening symptoms. Referrals: MITZI KELLY MD [Staff Physician] - 3-5 Days Time of Disposition: 02:32
[2021-06-29 01:57] LABS: Basophils % (Auto) 0.6 % (0.0-1.8); Eosinophils # (Auto) 0.2 K/mm3 (0.0-0.4); Eosinophils % (Auto) 2.9 % (0.0-4.3); Hemoglobin 15.1 gm/dl (11.8-15.2); Lymphocytes # (Auto) 3.2 K/mm3 (1.2-5.4); Lymphocytes % (Auto) 49.7 % (13.4-35.0); Mean Corpuscular HGB Conc 35 % (32-34); Mean Corpuscular Volume 94 fl (84-94); Monocytes # (Auto) 0.6 K/mm3 (0.0-0.8); Monocytes % (Auto) 9.4 % (0.0-7.3); Platelet Count 236 K/mm3 (140-440); Red Blood Count 4.58 M/mm3 (3.65-5.03); Red Cell Distribution Width 13.2 % (13.2-15.2)
[2021-06-29 02:13] LABS: Alanine Aminotransferase 20 units/L (7-56); Albumin 4.6 g/dL (3.9-5); BUN/Creatinine Ratio 21; Blood Urea Nitrogen 19 mg/dL (9-20); Calcium 9.3 mg/dL (8.4-10.2); Hemolysis Index 4
== END 2021-06-29 04:46 | disposition home or self-care (01) ==
LOC: ED 23:44
DX: E86.0 Dehydration (principal); M79.661 Pain in right lower leg; M79.662 Pain in left lower leg; K21.9 Gastro-esophageal reflux disease without esophagitis; F12.90 Cannabis use, unspecified, uncomplicated; Z79.899 Other long term (current) drug therapy
CPT/HCPCS: 36415; 80053; 82550; 83735; 85025; 85379

== ENCOUNTER 2021-11-14 10:46 | Emergency (ER) | payer SELFPAY ==
[2021-11-14 21:26] VITALS: BP 149/81
== END 2021-11-14 21:25 | disposition left against medical advice (07) ==
LOC: ED 10:46
DX: R07.89 Other chest pain (principal); Z53.21 Procedure and treatment not carried out due to patient leaving prior to being seen by health care provider

== ENCOUNTER 2021-11-14 21:20 | Emergency (ER) | payer SELFPAY ==
[2021-11-14 21:52] VITALS: BP 149/81
[2021-11-14] MEDS ORDERED: KETOROLAC 60 MG/2 ML INJ IM ONE (23:19)
--- NOTE | 2021-11-14 23:23 | Emergency Department Report ---
ED Chest Pain HPI - General Chief Complaint: Chest Pain Stated Complaint: CHEST PAIN Time Seen by Provider: 11/14/21 23:06 Source: patient, old records reviewed Mode of arrival: Ambulatory Limitations: No Limitations - History of Present Illness Initial Comments: 30-year-old male with a past medical history of GERD and first-degree AV block presents to the hospital planing of left upper chest pain for the past 4 days. Patient complains of tenderness to palpation of the left upper medial chest extending to the clavicle that is worse with movement/twisting of his upper torso. Patient states pain is 10/10 in intensity however, he looks very comfortable during examination and is not in acute distress. patient denies shortness of breath, nausea, vomiting, diaphoresis, calf tenderness, leg edema, or cough. Patient smokes cigarettes. He smokes marijuana. Denies cocaine abuse. He is not currently taking any medication for pain - Related Data Previous Rx's Medication Instructions Recorded Last Taken Type Naproxen [Naprosyn TAB] 500 mg PO BID PRN #30 tablet 05/22/19 Unknown Rx Albuterol Mdi (or & Nicu Only) 1 puff IH QID PRN #8.5 gram 11/21/19 Unknown Rx [ProAir HFA Inhaler] guaiFENesin/CODEINE [Robitussin AC] 5 ml PO Q4HR PRN #120 oral.liqd 11/21/19 Unknown Rx Ibuprofen [Motrin 800 MG tab] 800 mg PO Q8HR PRN #30 tablet 02/07/20 Unknown Rx polyethylene glycoL 3350 [Miralax 17 gm PO BID PRN #14 packet 02/07/20 Unknown Rx 3350] predniSONE [Deltasone] 40 mg PO QDAY 5 Days #10 tab 07/24/20 Unknown Rx Naproxen [Naprosyn] 500 mg PO BID #20 tablet 11/19/20 Unknown Rx methOCARBAMOL [Robaxin TAB] 500 mg PO Q8HR PRN #20 tablet 11/19/20 Unknown Rx Cyclobenzaprine [Flexeril 10 MG 10 mg PO TID PRN #12 tablet 01/13/21 Unknown Rx TAB] Ibuprofen [Motrin 800 MG tab] 800 mg PO Q8HR PRN #20 tablet 01/13/21 Unknown Rx Naproxen 500 mg PO BID PRN #30 tablet 01/20/22 Unknown Rx Allergies Allergy/AdvReac Type Severity Reaction Status Date / Time No Known Allergies Allergy Verified 01/13/21 08:36 Heart Score - HEART Score History: Slightly suspicious EKG: Normal Age: < 45 Risk factors: 1-2 risk factors Troponin: < normal limit (not done) HEART Score: 1 - EKG Read Time Time EKG Completed: 21:32 EKG Read Time: 21:35 ED Review of Systems ROS: Stated complaint: CHEST PAIN Other details as noted in HPI Comment: All other systems reviewed and negative ED Past Medical Hx - Past Medical History Previous Medical History?: Yes Hx GERD: Yes Additional medical history: first degree heart block? - Surgical History Past Surgical History?: No - Social History Smoking Status: Never Smoker Substance Use Type: Marijuana - Medications Home Medications: Home Medications Medication Instructions Recorded Confirmed Last Taken Type Naproxen [Naprosyn TAB] 500 mg PO BID PRN #30 tablet 05/22/19 Unknown Rx Albuterol Mdi (or & Nicu Only) 1 puff IH QID PRN #8.5 gram 11/21/19 Unknown Rx [ProAir HFA Inhaler] guaiFENesin/CODEINE [Robitussin AC] 5 ml PO Q4HR PRN #120 oral.liqd 11/21/19 Unknown Rx Ibuprofen [Motrin 800 MG tab] 800 mg PO Q8HR PRN #30 tablet 02/07/20 Unknown Rx polyethylene glycoL 3350 [Miralax 17 gm PO BID PRN #14 packet 02/07/20 Unknown Rx 3350] predniSONE [Deltasone] 40 mg PO QDAY 5 Days #10 tab 07/24/20 Unknown Rx Naproxen [Naprosyn] 500 mg PO BID #20 tablet 11/19/20 Unknown Rx methOCARBAMOL [Robaxin TAB] 500 mg PO Q8HR PRN #20 tablet 11/19/20 Unknown Rx Cyclobenzaprine [Flexeril 10 MG 10 mg PO TID PRN #12 tablet 01/13/21 Unknown Rx TAB] Ibuprofen [Motrin 800 MG tab] 800 mg PO Q8HR PRN #20 tablet 01/13/21 Unknown Rx Naproxen 500 mg PO BID PRN #30 tablet 11/14/21 Unknown Rx ED Physical Exam - General Limitations: No Limitations - Other Other exam information: General: No acute distress Head: Atraumatic Eyes: normal appearance ENT: Moist mucous membranes Neck: Normal appearance, no midline tenderness Chest: Clear to auscultation bilaterally, reproducible left upper medial chest wall tenderness extending to the clavicle worse with movement CV: Regular rate and rhythm Abdomen: Soft, normal bowel sounds, nontender, nondistended, no rebound or guarding Back: Normal inspection Extremity: Normal inspection, full range of motion, no calf tenderness or leg edema Neuro: Alert O x 3, no facial asymmetry, speech clear, no gross motor sensory deficit Psych: Appropriate behavior Skin: No rash ED Course Vital Signs 11/14/21 21:23 Temperature 97.5 F L Pulse Rate 68 Respiratory 18 Rate Blood Pressure 149/81 O2 Sat by Pulse 96 Oximetry MELIA score - Melia Score Age > 65: (0) No Aspirin use within the Past 7 Days: (0) No 3 or more CAD Risk Factors: (0) No 2 or more Angina events in past 24 hrs: (1) Yes (If pain is considered angina. More likely to be musculoskeletal) Known CAD with more than 50% Stenosis: (0) No Elevated Cardiac Markers: (0) No (not tested) ST Deviation Greater than 0.5mm: (0) No MELIA Score: 1 ED Medical Decision Making - EKG Data -: EKG Interpreted by Me EKG shows normal: sinus rhythm, intervals (Normal QTC, normal CO interval), QRS complexes (Normal QRS duration), ST-T waves (No STEMI) Rate: normal - EKG Data When compared to previous EKG there are: no significant change - Medical Decision Making 30-year-old male presents to the hospital with left upper chest pain worse with movement and palpation. EKG without acute changes or signs of ischemia. Toradol provided. Will be discharged on meds and follow up Critical Care Time: No Critical care attestation.: If time is entered above; I have spent that time in minutes in the direct care of this critically ill patient, excluding procedure time. ED Disposition Clinical Impression: Musculoskeletal chest pain Disposition: HOME / SELF CARE / HOMELESS Is pt being admited?: No Does the pt Need Aspirin: No Condition: Stable Instructions: Chest Wall Pain, [id number] Additional Instructions: Take the medication as prescribed. Follow-up with your doctor or doctor/clinic provided. Return if symptoms worsen as indicated by your discharge instructions. Prescriptions: Naproxen 500 mg PO BID PRN #30 tablet PRN Reason: pain Referrals: [facility] [Provider Group] - 3-5 Days Time of Disposition: 23:26
== END 2021-11-15 04:44 | disposition home or self-care (01) ==
LOC: ED 21:20
DX: R07.89 Other chest pain (principal)
CPT/HCPCS: 93005; 93010; 96372; 99282; J1885

== ENCOUNTER 2022-07-19 08:50 | Emergency (ER) | payer SELFPAY ==
[2022-07-19 09:28] VITALS: BP 131/85
[2022-07-19] MEDS ORDERED: ASPIRIN 325 MG TAB PO ONE (09:29)
--- NOTE | 2022-07-19 10:13 | XRay Report ---
CHEST 2 VIEWS INDICATION: arrhythmia with chest pain. COMPARISON: 01/13/2021 FINDINGS: SUPPORT DEVICES: None. HEART: Within normal limits. LUNGS/PLEURA: No acute air space or interstitial disease. No pneumothorax. ADDITIONAL FINDINGS: None. IMPRESSION: 1. No acute findings. Signer Name: Costa Pulido MD Signed: 07/19/2022 10:09 AM Workstation Name: [id number]
[2022-07-19 10:14] LABS: Basophils % (Auto) 0.5 % (0.0-1.8); Eosinophils # (Auto) 0.2 K/mm3 (0.0-0.4); Eosinophils % (Auto) 3.8 % (0.0-4.3); Hematocrit 43.8 % (35.5-45.6); Hemoglobin 14.7 gm/dl (11.8-15.2); Lymphocytes # (Auto) 2.3 K/mm3 (1.2-5.4); Mean Corpuscular HGB Conc 34 % (32-34); Mean Corpuscular Volume 94 fl (84-94); Monocytes # (Auto) 0.5 K/mm3 (0.0-0.8); Monocytes % (Auto) 8.8 % (0.0-7.3); Platelet Count 243 K/mm3 (140-440); Red Blood Count 4.64 M/mm3 (3.65-5.03); Red Cell Distribution Width 12.8 % (13.2-15.2)
[2022-07-19 10:37] LABS: Alanine Aminotransferase 19 units/L (7-56); Albumin 4.3 g/dL (3.9-5); BUN/Creatinine Ratio 16; Blood Urea Nitrogen 14 mg/dL (9-20); Calcium 9.2 mg/dL (8.4-10.2); Hemolysis Index 7
--- NOTE | 2022-07-19 11:56 | Electrocardiograph Report ---
[facility] Test Date: 2022-07-19 Test Time: 09:23:27 Pat Name: GREGORIO MARTINEZ Department: Room: Gender: M Certified Surgical Assistant: Medhat URBANO RN : 1990 Requested By: ED DOC Order Number: [id number] Reading MD: Alvarez Palacios Measurements Intervals [place] Rate: 63 P: -2 CT: 192 QRS: 11 QRSD: 81 T: 27 QT: 402 QTc: 411 Interpretive Statements Sinus rhythm Compared to ECG 11/14/2021 21:32:31 No significant changes Electronically Signed On 07-19-2022 11:56:18 EDT by Alvarez Palacios
== END 2022-07-19 19:20 | disposition left against medical advice (07) ==
LOC: ED 08:50
DX: R07.9 Chest pain, unspecified (principal); Z53.21 Procedure and treatment not carried out due to patient leaving prior to being seen by health care provider
CPT/HCPCS: 36415; 71046; 80053; 84484; 85025; 93005